=== PATIENT | male | born 1955 | race Caucasian/White ===

== ENCOUNTER 2022-05-19 14:26 | Emergency (ER) | payer MEDICARE, BC ==
[~2022-05-19] VITALS: Ht 172.7 cm; Wt 90.9 kg
[~2022-05-19 14:26] MED LIST: ASPI-611 PO; ATOR40TA72 PO; CIPR-259 PO; FLO0.4C PO; INDA1.255 PO; KETO120S5 TOP; LISI10TA27; METF-1203 PO; PREG50CA64 PO
--- NOTE | 2022-05-19 14:57 | NUR ---
DR. MOSES UPDATED ON PT STATUS, PT PLACED IN BED 11 AND REPORT GIVEN TO ZULLY POON.
[2022-05-19] MEDS ORDERED: normal saline 1000ML IV soln IVB ONE ×2 (15:00→15:55)
[2022-05-19] MEDS ORDERED: PATIROMER CALCIUM SORBITEX 8.4 GM POWD.PACK PO ONE (15:05)
[2022-05-19 15:42] LABS: BASOPHILS # (AUTO) 0.1 X10'3 (0-0.2); BASOPHILS % (AUTO) 1.3 % (0-1); EOSINOPHILS # (AUTO) 0.4 X10'3 (0-0.9); EOSINOPHILS % (AUTO) 5.4 % (0-6); HEMOGLOBIN 10.9 g/dl (14.0-17.9); LYMPHOCYTES # (AUTO) 1.3 X10'3 (1.1-4.8); LYMPHOCYTES % (AUTO) 16.8 % (21-51); MEAN CORPUSCULAR HEMOGLOBIN 30.2 PG (27.0-31.0); MEAN CORPUSCULAR HGB CONC 34.2 g/dL (33.0-36.5); MEAN CORPUSCULAR VOLUME 88.2 FL (78-98); MEAN PLATELET VOLUME 8.6 FL (7.4-10.4); MONOCYTES # (AUTO) 0.9 X10'3 (0-0.9); MONOCYTES % (AUTO) 12.4 % (2-12); NEUTROPHILS # (AUTO) 4.9 X10'3 (1.8-7.7); NEUTROPHILS % (AUTO) 64.1 % (42-75); PLATELET COUNT 325 X10'3 (140-440); RED BLOOD COUNT 3.62 X10'6 (4.70-6.10); RED CELL DISTRIBUTION WIDTH 14.7 % (11.5-14.5); WHITE BLOOD COUNT 7.6 X10'3 (4.5-11.0)
[2022-05-19 15:45] LABS: ALANINE AMINOTRANSFERASE 22 U/L (12-78); ALBUMIN 3.8 G/DL (3.4-5.0); ALBUMIN/GLOBULIN RATIO 0.9 (1.1-1.5); ALKALINE PHOSPHATASE 110 IU/L (46-116); ANION GAP 12 (8-16); ASPARTATE AMINO TRANSFERASE 17 U/L (10-37); BILIRUBIN,TOTAL 0.3 MG/DL (0.1-1.0); BLOOD UREA NITROGEN 60 MG/DL (7-18); BUN/CREATININE RATIO 25.4 (5.4-32.0); CALCIUM 9.4 MG/DL (8.5-10.1); CHLORIDE 99 MMOL/L (99-107); CREATININE 2.36 MG/DL (0.60-1.10); GLUCOSE 155 MG/DL (70-104); POTASSIUM 5.6 MMOL/L (3.5-5.1); SODIUM 133 MMOL/L (135-145); TOTAL CARBON DIOXIDE 21.8 MMOL/L (24-32); TOTAL PROTEIN 8.2 G/DL (6.4-8.2); eGFR 28 ML/MIN
--- NOTE | 2022-05-19 15:52 | NUR ---
RN received critical lab result: lactic 4.0. RN notified Dr. Feng. is aware.
[2022-05-19 17:25] VITALS: BP 110/55
== END 2022-05-19 18:08 | disposition home or self-care (01) ==
LOC: ER 14:26
DX: E87.6 Hypokalemia (principal); E86.0 Dehydration; I10 Essential (primary) hypertension; E11.9 Type 2 diabetes mellitus without complications; Z79.899 Other long term (current) drug therapy; Z88.8 Allergy status to other drugs, medicaments and biological substances
CPT/HCPCS: 36415; 71045; 80053; 83605; 83880; 84145; 84484; 85025; 87040; 93005; 96360; 96361; 99285; J7030

== ENCOUNTER 2022-05-25 05:49 | Day surgery (SDC) | payer MEDICARE, OTHER ==
[2022-05-19 13:21] LABS: ALBUMIN 3.8 G/DL (3.4-5.0); ALBUMIN/GLOBULIN RATIO 0.8 (1.1-1.5); ALKALINE PHOSPHATASE 106 IU/L (46-116); BLOOD UREA NITROGEN 55 MG/DL (7-18); BUN/CREATININE RATIO 26.8 (5.4-32.0); CALCIUM 9.8 MG/DL (8.5-10.1); CHLORIDE 100 MMOL/L (99-107); CREATININE 2.05 MG/DL (0.60-1.10); PRE OP ALT 23 U/L (30-65); PRE OP ANION GAP 11 (8-16); PRE OP AST 17 U/L (10-37); PRE OP BILIRUB, TOTAL 0.3 MG/DL (0.0-1.0); PRE OP GLUCOSE 133 MG/DL (70-104); PRE OP SODIUM 136 MMOL/L (135-145); TOTAL CARBON DIOXIDE 25.1 MMOL/L (24-32); TOTAL PROTEIN 8.5 G/DL (6.4-8.2); eGFR 32 ML/MIN
[2022-05-19 13:39] LABS: BASOPHILS # (AUTO) 0.1 X10'3 (0-0.2); BASOPHILS % (AUTO) 0.9 % (0-1); EOSINOPHILS # (AUTO) 0.5 X10'3 (0-0.9); EOSINOPHILS % (AUTO) 7.2 % (0-6); LYMPHOCYTES # (AUTO) 1.5 X10'3 (1.1-4.8); LYMPHOCYTES % (AUTO) 19.7 % (21-51); MEAN CORPUSCULAR HEMOGLOBIN 29.8 PG (27.0-31.0); MEAN CORPUSCULAR HGB CONC 33.4 g/dL (33.0-36.5); MEAN CORPUSCULAR VOLUME 89.4 FL (78-98); MEAN PLATELET VOLUME 8.8 FL (7.4-10.4); MONOCYTES # (AUTO) 0.9 X10'3 (0-0.9); MONOCYTES % (AUTO) 12.2 % (2-12); NEUTROPHILS # (AUTO) 4.6 X10'3 (1.8-7.7); PRE OP HEMATOCRIT 33.1 % (42.0-52.0); PRE OP PLATELET COUNT 332 X10'3 (140-440); RED CELL DISTRIBUTION WIDTH 14.5 % (11.5-14.5)
[2022-05-25] VITALS (8 sets, daily range): BP systolic 97–127; BP diastolic 45–69
[~2022-05-25] VITALS: Ht 172.7 cm; Wt 93.5 kg
[~2022-05-25 05:49] MED LIST changes: +ceFAZolin inj. 2,000 MG in dextrose 5%-water 100 ML IV ONE; +famotidine 20mg tablet PO ONE; +ringers solution, lacted 1,000 ML IV SCH
[2022-05-25] MEDS ORDERED: vancomycin 1,000mg inj ONE (06:04)
[2022-05-25] MEDS ORDERED: bacitracin 15gm ointment TP ONE (06:04)
[2022-05-25] MEDS ORDERED: BUPIVAcaine/PF 2.5 mg/ml (0.25%) 30ml vial ONE (06:04)
[2022-05-25] MEDS ORDERED: vancomycin 1,500 MG in NS 300ml IV soln IV ONE (06:32)
[2022-05-25 06:45] LABS: ISTAT CREATININE 1.9 mg/dL (0.8-1.3); ISTAT HGB 10.9 g/dl (14.0-17.9); ISTAT IONIZED CALCIUM 1.24 mmol/L (1.03-1.32); ISTAT K 4.7 mmol/L (3.5-5.1); POC BUN/CREATININE RATIO 33.2 (5.4-32.0)
[2022-05-25] MEDS ORDERED: propofol inj 20 ML IV ONE (07:31)
[2022-05-25] MEDS ORDERED: midazolam 1 mg/ML 2ml injection ONE (07:31)
[2022-05-25] MEDS ORDERED: fentaNYL/PF 50MCG/1 ML 2ML syringe ONE (07:31)
[2022-05-25] MEDS ORDERED: ePHEDrine 50MG/ML INJ. ONE (07:57)
[2022-05-25] MEDS ORDERED: proCHLORperazine 10 MG/2 ml inj IV PRN (08:05)
[2022-05-25] MEDS ORDERED: morphine 2 MG/ML inj. syringe IV PRN (08:05)
[2022-05-25] MEDS ORDERED: morphine 4 MG/ML inj SYRINge IV PRN (08:05)
[2022-05-25] MEDS ORDERED: ringers solution, lacted 1,000 ML IV SCH (08:05)
[2022-05-25] MEDS ORDERED: meperidine/PF 25mg/ml syringe IV PRN ×3 (08:05)
[2022-05-25] MEDS ORDERED: ondansetron/PF 4mg/2ml inj IV PRN (08:05)
[2022-05-25] MEDS ORDERED: BUPIVAcaine 2.5mg/ml inj 50ml vial (contains preservative) SQ ONE (08:08)
--- NOTE | 2022-05-25 08:23 | NUR ---
Received from OR via CHILO , accompanied by Anesthesiologist CHIP and report given by Anesthesiolgist. PT AAOX4, NO COMPLAINTS OF PAIN, ON SIMPLE MASK, NAD. DRESSING CLEAN DRY AND INTACT TO RIGHT FOOT, POSITIVE CIRCULATION AND MOVEMENT. Addendum: 05/25/22 at 0919 by Vimal Fowler RN Amended: Links added.
--- NOTE | 2022-05-25 09:13 | NUR ---
PT DISCHARGED HOME INTO 'S CARE. PT HAS NO COMPLAINTS.VSS, NO COMPLAINTS OF PAIN. DEMONSTRATES INDEPENDENT AMBULATION, STEADY NARROW GAIT WITH BOOT IN PLACE PWB PER MD ORDER. TO POV VIA WHEELCHAIR WITHOUT INCIDENT Addendum: 05/25/22 at 0921 by Vimal Fowler RN Amended: Links added.
== END 2022-05-25 09:13 | disposition home or self-care (01) ==
LOC: PAS 05:49
PROVIDERS: ATTEND Podiatrist Foot & Ankle Surgery
DX: E11.621 Type 2 diabetes mellitus with foot ulcer (principal); L97.429 Non-pressure chronic ulcer of left heel and midfoot with unspecified severity; A49.8 Other bacterial infections of unspecified site; Z98.890 Other specified postprocedural states; Z87.891 Personal history of nicotine dependence; I10 Essential (primary) hypertension; Z88.8 Allergy status to other drugs, medicaments and biological substances; Z87.442 Personal history of urinary calculi; E11.51 Type 2 diabetes mellitus with diabetic peripheral angiopathy without gangrene
CPT/HCPCS: 14040; 28810; 36415; 80047; 80053; 85025; 87070; 87075; 87077; 87186; A6223; J0690; J2250; J2704; J3010; J3370; J3490; J7030; J7040; J7060; J7120; Z7506; Z7512; 87076; 88305; 88311; A4618; A6449; A7000

== ENCOUNTER 2022-07-18 08:31 | Inpatient (IN) | payer MEDICARE, BC ==
[~2022-07-18] VITALS: Ht 172.7 cm; Wt 98.1 kg
[~2022-07-18 08:31] MED LIST changes: -INDA1.255 PO; -ceFAZolin inj. 2,000 MG in dextrose 5%-water 100 ML IV ONE; -famotidine 20mg tablet PO ONE; -ringers solution, lacted 1,000 ML IV SCH
[2022-07-18] MEDS ORDERED: amiodarone 150mg/dext, iso-os 100 ML IV ONE (08:45)
[2022-07-18] MEDS ORDERED: digoxin 250mcg/ml 2ml ampule IV ONE (08:45)
[2022-07-18] MEDS ORDERED: normal saline 1000ML IV soln IVB ONE (08:45)
[2022-07-18 08:54] LABS: BASOPHILS # (AUTO) 0.1 X10'3 (0-0.2); EOSINOPHILS # (AUTO) 0.3 X10'3 (0-0.9); EOSINOPHILS % (AUTO) 4.5 % (0-6); HEMATOCRIT 33.8 % (42.0-52.0); LYMPHOCYTES # (AUTO) 1.8 X10'3 (1.1-4.8); MEAN CORPUSCULAR HEMOGLOBIN 29.2 PG (27.0-31.0); MEAN CORPUSCULAR HGB CONC 32.4 g/dL (33.0-36.5); MEAN CORPUSCULAR VOLUME 90.2 FL (78-98); MONOCYTES % (AUTO) 12.9 % (2-12); NEUTROPHILS # (AUTO) 4.3 X10'3 (1.8-7.7); NEUTROPHILS % (AUTO) 56.6 % (42-75); PLATELET COUNT 251 X10'3 (140-440); RED BLOOD COUNT 3.75 X10'6 (4.70-6.10); RED CELL DISTRIBUTION WIDTH 14.8 % (11.5-14.5); WHITE BLOOD COUNT 7.6 X10'3 (4.5-11.0)
--- NOTE | 2022-07-18 09:06 | NUR ---
AFTER AMIO BOLUS PT CONVERTED TO NSR. AWARE. WILL REPEAT EKG
[2022-07-18 09:18] LABS: ALANINE AMINOTRANSFERASE 22 U/L (12-78); ALBUMIN/GLOBULIN RATIO 1.1 (1.1-1.5); ALKALINE PHOSPHATASE 88 IU/L (46-116); ANION GAP 13 (8-16); ASPARTATE AMINO TRANSFERASE 22 U/L (10-37); BILIRUBIN,TOTAL 0.4 MG/DL (0.1-1.0); BLOOD UREA NITROGEN 38 MG/DL (7-18); BUN/CREATININE RATIO 23.3 (5.4-32.0); CALCIUM 9.2 MG/DL (8.5-10.1); CHLORIDE 105 MMOL/L (99-107); CREATININE 1.63 MG/DL (0.60-1.10); GLUCOSE 143 MG/DL (70-104); MAGNESIUM 1.4 MG/DL (1.5-2.4); POTASSIUM 4.7 MMOL/L (3.5-5.1); SODIUM 139 MMOL/L (135-145); TOTAL CARBON DIOXIDE 20.6 MMOL/L (24-32); TOTAL PROTEIN 7.7 G/DL (6.4-8.2); eGFR 42 ML/MIN
[2022-07-18] MEDS ORDERED: apixaban 5mg tablet PO ONE (09:45)
[2022-07-18] MEDS: magnesium 2GM in 50ml NS 50 ML IV SCH ×2 (10:21→10:50)
[2022-07-18] MEDS ORDERED: APIX5TAB3 PO ×2 (10:27)
[2022-07-18] MEDS ORDERED: MAGN64TA8 PO ×2 (10:27)
[2022-07-18] MEDS ORDERED: potassium Cl 20 mEq SR tablet PO PRN ×2 (11:35)
[2022-07-18] MEDS ORDERED: morphine 2 MG/ML inj. syringe IV PRN ×2 (11:35)
[2022-07-18] MEDS ORDERED: magnesium 4gm in 100ml NS 100 ML IV PRN (11:35)
[2022-07-18] MEDS ORDERED: HYDROcodone/acetaminophen 10/325mg tab PO PRN (11:35)
[2022-07-18] MEDS ORDERED: magnesium Cl slow-release 64mg tablet PO PRN (11:35)
[2022-07-18] MEDS ORDERED: ondansetron/PF 4mg/2ml inj IV PRN (11:35)
[2022-07-18] MEDS ORDERED: potassium Cl 40MEQ/1/2NS 520ml 520 ML IV PRN (11:35)
[2022-07-18] MEDS ORDERED: HYDROcodone/acetaminophen 5mg/325mg tablet PO PRN (11:35)
[2022-07-18] MEDS ORDERED: diltiazem-NS 100mg/100ml 100 ML IV SCH (11:35)
[2022-07-18] MEDS ORDERED: acetaminophen 325mg tablet PO PRN ×2 (11:35)
[2022-07-18] MEDS: normal saline 1000ml 1,000 ML IV SCH (12:50)
[2022-07-18] MEDS ORDERED: PREG50CA PO (13:29)
[2022-07-18] MEDS ORDERED: KEN0.1O TOP (13:31)
[2022-07-18] MEDS ORDERED: INSU100V56 SQ (13:33)
[2022-07-18] MEDS ORDERED: ACET-75 PO (13:34)
[2022-07-18 14:23] LABS: APTT 28 SECONDS (22-32)
[2022-07-18] MEDS ORDERED: aspirin 81mg tab.chew PO ONE (15:10)
[2022-07-18 15:27] LABS: CHOL/HDL RATIO 2.9 (0.00-4.99); CHOLESTEROL 103 MG/DL (0-200); HDL CHOLESTEROL 36 MG/DL (35-60); LDL CHOLESTEROL 51 MG/DL (50-100); TRIGLYCERIDES 105 MG/DL (20-135)
[2022-07-18] MEDS ORDERED: glucagon, human recombinant 1mg kit SUBCUT PRN (15:50)
[2022-07-18] MEDS ORDERED: DEXTROSE 15 GM of carb/4 tabs (each vial/BOTTLE has 4 tablets) PO PRN ×2 (15:50)
[2022-07-18] MEDS ORDERED: dextrose 50%-water 50ml dispensing syringe IV PRN ×2 (15:50)
[2022-07-18] MEDS ORDERED: insulin Lispro (HumaLOG) vial - multi-dose SQ SCH (15:50)
[2022-07-18] MEDS ORDERED: MESSAGE TO PHARMACY PO ONE (15:50)
[2022-07-18] MEDS ORDERED: heparin, porcine 5000 units/ml vial SQ SCH (16:00)
--- NOTE | 2022-07-18 17:48 | NUR ---
patient arrived to floor . He is alert and oriented. Vitals are stable. Patient is being monitored by telemetry. He was oriented to room and call light.
[2022-07-18 18:00] VITALS: BP 127/61
--- NOTE | 2022-07-18 18:05 | NUR ---
Orientee documentation: I have reviewed and agree with all interventions, assessments performed and documented by Migdalia SANDOVAL . Orientee Medication Administration: For this medication-pass time frame, all medication were reviewed, dispensed, administered and documented per hospital policy by Migdalia SANDOVAL.
--- NOTE | 2022-07-18 18:11 | NUR ---
Problems reprioritized. Patient report given, questions answered & plan of care reviewed with Freddy SANDOVAL.
--- NOTE | 2022-07-18 18:30 | NUR ---
Patient in room PCU 3018. I have received report from galo and had the opportunity to ask questions and assume patient care.
[2022-07-18] MEDS: metoprolol tartrate 12.5mg (1/2 tablet) PO SCH (20:44)
[2022-07-18] MEDS: pregabalin 25mg capsule PO SCH (20:44)
[2022-07-18] MEDS ORDERED: temazepam 15mg capsule PO PRN (21:00)
[2022-07-18] MEDS ORDERED: insulin glargine (Lantus) pen - multi-dose SQ SCH (21:00)
[2022-07-18] MEDS ORDERED: heparin 25,000 UNIT/250ml bag 250 ML IV PRN (22:30)
[2022-07-18] MEDS: heparin 10,000 units/1 ML INJ IV PRN (23:46)
[2022-07-19] VITALS (14 sets, daily range): BP systolic 108–144; BP diastolic 47–63
--- NOTE | 2022-07-19 07:01 | NUR ---
Patient in room PCU 3018. I have received report from Freddy SANDOVAL and had the opportunity to ask questions and assume patient care.
[2022-07-19 07:17] LABS: BASOPHILS # (AUTO) 0.1 X10'3 (0-0.2); EOSINOPHILS # (AUTO) 0.4 X10'3 (0-0.9); EOSINOPHILS % (AUTO) 4.8 % (0-6); HEMATOCRIT 31.8 % (42.0-52.0); HEMOGLOBIN 10.6 g/dl (14.0-17.9); LYMPHOCYTES # (AUTO) 1.5 X10'3 (1.1-4.8); LYMPHOCYTES % (AUTO) 19.2 % (21-51); MEAN CORPUSCULAR HEMOGLOBIN 29.8 PG (27.0-31.0); MEAN CORPUSCULAR HGB CONC 33.4 g/dL (33.0-36.5); MEAN CORPUSCULAR VOLUME 89.3 FL (78-98); MEAN PLATELET VOLUME 9.4 FL (7.4-10.4); MONOCYTES # (AUTO) 0.9 X10'3 (0-0.9); PLATELET COUNT 244 X10'3 (140-440); RED BLOOD COUNT 3.57 X10'6 (4.70-6.10); RED CELL DISTRIBUTION WIDTH 14.9 % (11.5-14.5); WHITE BLOOD COUNT 7.9 X10'3 (4.5-11.0)
[2022-07-19] MEDS: tamsulosin 0.4mg capsule PO SCH (07:24)
[2022-07-19] MEDS: pregabalin 25mg capsule PO SCH ×2 (07:25→21:37)
[2022-07-19] MEDS: atorvastatin 20mg tablet PO SCH (07:25)
[2022-07-19] MEDS: aspirin 81mg tab.chew PO SCH (07:28)
[2022-07-19] MEDS: heparin 10,000 units/1 ML INJ IV PRN ×2 (07:36→21:10)
[2022-07-19] MEDS: lisinopril 10 MG tablet PO SCH (08:00)
[2022-07-19] MEDS: metoprolol tartrate 12.5mg (1/2 tablet) PO SCH ×2 (08:00→21:32)
[2022-07-19 08:36] LABS: ALANINE AMINOTRANSFERASE 21 U/L (12-78); ALBUMIN 3.7 G/DL (3.4-5.0); ALBUMIN/GLOBULIN RATIO 1.1 (1.1-1.5); ALKALINE PHOSPHATASE 79 IU/L (46-116); ANION GAP 8 (8-16); ASPARTATE AMINO TRANSFERASE 38 U/L (10-37); BILIRUBIN,TOTAL 0.3 MG/DL (0.1-1.0); BLOOD UREA NITROGEN 31 MG/DL (7-18); BUN/CREATININE RATIO 24.2 (5.4-32.0); CALCIUM 8.7 MG/DL (8.5-10.1); CHLORIDE 106 MMOL/L (99-107); CREATININE 1.28 MG/DL (0.60-1.10); GLUCOSE 116 MG/DL (70-104); POTASSIUM 4.5 MMOL/L (3.5-5.1); SODIUM 139 MMOL/L (135-145); TOTAL CARBON DIOXIDE 24.6 MMOL/L (24-32); TOTAL PROTEIN 7.2 G/DL (6.4-8.2); eGFR 56 ML/MIN
[2022-07-19] MEDS: normal saline 1000ml 1,000 ML IV SCH (08:44)
[2022-07-19] MEDS ORDERED: verapamil 2.5 mg/ml inj IV ONE (11:30)
[2022-07-19] MEDS ORDERED: nitroGLYCERIN-Tridil 50MG/D5W 250 ML IV ONE (11:30)
[2022-07-19] MEDS ORDERED: midazolam 1 mg/ML 2ml injection ONE (11:30)
[2022-07-19] MEDS ORDERED: LIDOcaine 1% (10mg/ml) 2ml vial ONE (11:31)
[2022-07-19] MEDS ORDERED: heparin 1,000unit/ml 10ml vial 10 ML ONE (11:31)
[2022-07-19] MEDS ORDERED: iohexol 350MG/ML 100ml bottle IV ONE (11:31)
[2022-07-19] MEDS ORDERED: FENTANYL CITRATE/PF 50 MCG/1 ML VIAL ONE (11:31)
--- NOTE | 2022-07-19 12:08 | NUR ---
Pt taken to field laborer at approx 1145, no BS @ 1200 able to be taken.
--- NOTE | 2022-07-19 13:18 | NUR ---
patient returned from mine laborer. Vitals stable, distal pulses and sensation intact, no hematoma or bruising at r radial cath site.
--- NOTE | 2022-07-19 13:21 | NUR ---
per paint laboratory technician restart heparin at 7pm tonight
[2022-07-19] MEDS ORDERED: MESSAGE TO PHARMACY IJ ONE (13:55)
[2022-07-19] MEDS ORDERED: Insulin Reg/NS 100units/100mL 100 ML IV SCH (13:55)
[2022-07-19] MEDS ORDERED: MESSAGE TO NURSING PO ONE ×3 (13:55)
[2022-07-19] MEDS ORDERED: insulin glargine (Lantus) pen - multi-dose SQ PRN (13:55)
[2022-07-19] MEDS ORDERED: cefazolin/dext.iso 2gm/50ml 50 ML IV ONE (13:55)
[2022-07-19] MEDS ORDERED: dextrose 50%-water 50ml dispensing syringe IV PRN (13:55)
[2022-07-19] MEDS ORDERED: gabapentin 400mg capsule PO ONE (13:55)
[2022-07-19 15:02] LABS: APTT 74 SECONDS (22-32)
--- NOTE | 2022-07-19 15:09 | NUR ---
Patient 3018B, Sal Evangelista - scheduled for CABG 07/20/22 @ 1500, needs pulmonary function test and ABG. Please and thank you. Migdalia Peña, JAIME II
--- NOTE | 2022-07-19 15:15 | NUR ---
heparin gtt was stopped in catheterization laboratory technician and has remained off. Lab and pharmacy called to tell me PTT is 74. Heparin gtt to restart at 1900. PTT ordered for 1800.
[2022-07-19 15:49] LABS: ABG BASE EXCESS -2.5 mmol/L (-2.0-2.0); ABG HCO3 21.4 mmol/L (22.0-26.0); ABG OXYGEN SATURATION 95.2 % (94-97); ABG PCO2 (T) 34.2 mmHg (35.0-48.0); ABG PO2 (T) 80.6 mmHg (75.0-100.0); ALLEN'S TEST POSITIVE; FCOHb 0.3 % (0.0-3.9); FMetHb 0.1 % (0.0-1.5); FO2Hb 94.8 % (94-97); TOTAL HEMOGLOBIN 11.7 G/dl (14.0-17.9)
--- NOTE | 2022-07-19 16:19 | NUR ---
LN gave education and pamphlet to patient r/t cardiac procedures, gave education, incentive spirometer and witnessed pt using spirometer. LN [facility] to [facility] and eduardo is no longer with services and second number does not work.
[2022-07-19] MEDS ORDERED: ringers solution, lacted 1,000 ML IV ONE (16:30)
--- NOTE | 2022-07-19 17:56 | NUR ---
Orientee documentation: I have reviewed and agree with all interventions, assessments performed and documented by Migdalia SANDOVAL. Orientee Medication Administration: For this medication-pass time frame, all medication were reviewed, dispensed, administered and documented per hospital policy by Migdalia SANDOVAL.
--- NOTE | 2022-07-19 18:20 | NUR ---
Problems reprioritized. Patient report given, questions answered & plan of care reviewed with Alejandro ANDREA.
[2022-07-19 19:00] LABS: CLARITY,URINE CLEAR (Clear); COLOR,URINE YELLOW (Yellow); GLUCOSE, URINE >=1000 mg/dl (Neg); KETONES,URINE NEGATIVE (Neg); LEUKOCYTE ESTERASE ,URINE NEGATIVE (Neg); NITRITES, URINE NEGATIVE (Neg); OCCULT BLOOD,URINE NEGATIVE (Neg); PROTEIN,URINE NEGATIVE (Neg); UROBILINOGEN,URINE 0.2 E.U/dL (0.2-1.0)
[2022-07-19 19:11] LABS: UA COLLECTION TYPE CLN CATCH MIDSTREAM
[2022-07-19 19:14] LABS: BACTERIA,URINE NONE SEEN /HPF (Neg); MUCUS STRANDS NONE SEEN /LPF (Neg); RBC,URINE 0-2 /HPF (0-2); SQUAMOUS EPITHELIAL CELL,UR NONE SEEN /LPF (FEW); WBC,URINE 0-4 /HPF (0-4)
[2022-07-20] VITALS (11 sets, daily range): BP systolic 100–158; BP diastolic 44–80
[2022-07-20] MEDS: heparin 10,000 units/1 ML INJ IV PRN (04:09)
[2022-07-20] MEDS ORDERED: LORazepam 2 mg/ml vial IV ONE ×2 (06:00→11:40)
[2022-07-20] MEDS ORDERED: famotidine 20mg tablet PO ONE (06:00)
--- NOTE | 2022-07-20 06:20 | NUR ---
Patient in room U 3018. I have received report from Alejandro ANDREA and had the opportunity to ask questions and assume patient care.Bedside report completed. Addendum: 07/20/22 at 0621 by Linsey Veras RN Amended: Links added.
[2022-07-20] MEDS: normal saline 1000ml 1,000 ML IV SCH ×3 (06:29→20:47)
[2022-07-20 06:49] LABS: BASOPHILS # (AUTO) 0.1 X10'3 (0-0.2); BASOPHILS % (AUTO) 0.9 % (0-1); EOSINOPHILS # (AUTO) 0.4 X10'3 (0-0.9); EOSINOPHILS % (AUTO) 4.7 % (0-6); HEMATOCRIT 35.7 % (42.0-52.0); HEMOGLOBIN 11.8 g/dl (14.0-17.9); LYMPHOCYTES # (AUTO) 1.9 X10'3 (1.1-4.8); LYMPHOCYTES % (AUTO) 19.6 % (21-51); MEAN CORPUSCULAR HEMOGLOBIN 29.5 PG (27.0-31.0); MEAN CORPUSCULAR VOLUME 89.5 FL (78-98); MEAN PLATELET VOLUME 9.3 FL (7.4-10.4); MONOCYTES % (AUTO) 10.7 % (2-12); NEUTROPHILS # (AUTO) 6.1 X10'3 (1.8-7.7); NEUTROPHILS % (AUTO) 64.1 % (42-75); PLATELET COUNT 283 X10'3 (140-440); RED BLOOD COUNT 3.99 X10'6 (4.70-6.10); RED CELL DISTRIBUTION WIDTH 14.7 % (11.5-14.5); WHITE BLOOD COUNT 9.5 X10'3 (4.5-11.0)
[2022-07-20 07:08] LABS: ALANINE AMINOTRANSFERASE 23 U/L (12-78); ALBUMIN 4.2 G/DL (3.4-5.0); ALBUMIN/GLOBULIN RATIO 1.1 (1.1-1.5); ALKALINE PHOSPHATASE 94 IU/L (46-116); ANION GAP 12 (8-16); ASPARTATE AMINO TRANSFERASE 25 U/L (10-37); BILIRUBIN,TOTAL 0.3 MG/DL (0.1-1.0); BLOOD UREA NITROGEN 25 MG/DL (7-18); BUN/CREATININE RATIO 18.1 (5.4-32.0); CALCIUM 8.8 MG/DL (8.5-10.1); CHLORIDE 103 MMOL/L (99-107); CREATININE 1.38 MG/DL (0.60-1.10); GLUCOSE 158 MG/DL (70-104); POTASSIUM 4.3 MMOL/L (3.5-5.1); SODIUM 139 MMOL/L (135-145); TOTAL CARBON DIOXIDE 24.4 MMOL/L (24-32); TOTAL PROTEIN 8.1 G/DL (6.4-8.2); eGFR 51 ML/MIN
[2022-07-20] MEDS: aspirin 81mg tab.chew PO SCH (09:10)
[2022-07-20] MEDS: atorvastatin 20mg tablet PO SCH (09:10)
[2022-07-20] MEDS: tamsulosin 0.4mg capsule PO SCH (09:10)
[2022-07-20] MEDS: metoprolol tartrate 12.5mg (1/2 tablet) PO SCH (09:11)
[2022-07-20] MEDS: pregabalin 25mg capsule PO SCH ×2 (09:11→20:00)
[2022-07-20] MEDS: lisinopril 10 MG tablet PO SCH (09:12)
[2022-07-20] MEDS: MESSAGE TO NURSING PO SCH (09:15)
[2022-07-20] MEDS ORDERED: MESSAGE TO NURSING PO ONE (10:00)
[2022-07-20] MEDS ORDERED: ceFAZolin 1000mg inj ONE (12:58)
[2022-07-20] MEDS ORDERED: BUPIVAcaine 0.5% inj/PF 0 ML ONE (12:58)
[2022-07-20] MEDS ORDERED: epiNEPHrine 1 mg/ml inj ONE (12:58)
[2022-07-20] MEDS ORDERED: BUPIVAcaine 0.5% inj/PF 30 ML ONE ×2 (13:44→15:11)
[2022-07-20] MEDS ORDERED: mupirocin 2% nasal ointment 1gm UD NS SCH (14:00)
[2022-07-20] MEDS ORDERED: rocuronium 10mg/ml inj IV ONE ×3 (14:03→14:12)
[2022-07-20] MEDS ORDERED: sevoflurane 250ml liquid IH ONE (14:03)
[2022-07-20] MEDS ORDERED: protamine sulf. 10mg/ml inj. IV ONE (14:03)
[2022-07-20] MEDS ORDERED: MIDAZolam 1 MG/ML 5ML VIAL ONE (14:06)
[2022-07-20] MEDS ORDERED: propofol inj 20 ML IV ONE (14:07)
[2022-07-20] MEDS ORDERED: fentaNYL /PF 50mcg/ml 5ml ampule ONE ×2 (14:07→15:20)
--- NOTE | 2022-07-20 14:08 | NUR ---
down to OR has glasses, cpap shoes, wedding ring and cell phone. She has already taken suitcase containing jammies and robes x2.
[2022-07-20 14:55] LABS: ABG BASE EXCESS -2.3 mmol/L (-2.0-2.0); ABG OXYGEN SATURATION 98.7 % (94-97); ABG PCO2 35.9 mmHg (35.0-48.0); ABG PO2 185.4 mmHg (75.0-100.0); CL (ABG) 108 mmol/L (99-107); FCOHb 0.3 % (0.0-3.9); FMetHb 0.3 % (0.0-1.5); FO2Hb 98.1 % (94-97); GLUCOSE (ABG) 149 mg/dl (70-104); IONIZED CA (ABG) 1.15 mmol/L (1.10-1.30); K (ABG) 3.9 mmol/L (3.5-5.1); TOTAL HEMOGLOBIN 10.8 G/dl (14.0-17.9)
[2022-07-20] MEDS ORDERED: phenylephrine 10mg/ml inj. -priapism dosing ONE (15:00)
[2022-07-20] MEDS ORDERED: NORepinephrine bitart. inj. IV ONE (15:00)
[2022-07-20] MEDS ORDERED: sodium bicarbonate (8.4%) 1 mEq/ml syringe ONE (15:00)
[2022-07-20] MEDS ORDERED: methylPREDNISolone sod succ 1000mg vial ONE (15:00)
[2022-07-20] MEDS ORDERED: albumin (human) 25% 100 ML IV solution IV ONE (15:00)
[2022-07-20] MEDS ORDERED: heparin 10,000 units/1 ML INJ ONE (15:00)
[2022-07-20] MEDS ORDERED: calcium chloride 100 MG/1 ML inj IV ONE ×2 (15:00→18:26)
[2022-07-20] MEDS ORDERED: aminocaproic acid 250 MG/1 ML inj. ONE (15:00)
[2022-07-20] MEDS ORDERED: mannitol 12.5gm/50mL VIAL IV ONE (15:00)
[2022-07-20] MEDS ORDERED: ceFAZolin 1000mg inj IR ONE (15:50)
[2022-07-20] MEDS ORDERED: BUPIVAcaine 0.5% inj/PF 30 ml vial IJ ONE (15:51)
[2022-07-20] MEDS ORDERED: epiNEPHrine 1 mg/ml inj IU ONE (15:51)
[2022-07-20] MEDS ORDERED: papaverine 30 mg/ml 2ml inj. IA ONE (15:52)
[2022-07-20] MEDS ORDERED: heparin 10,000 units/1 ML INJ IR ONE (15:54)
[2022-07-20 16:10] LABS: ABG BASE EXCESS VENOUS -1.8 mmol/L (-2.0 - 2.0); ABG HCO3 VENOUS 22.7 mmol/L (21.0-28.0); ABG PCO2 VENOUS 37.1 mmHg (41.0-54.0); ABG PO2 VENOUS 46.3 mmHg (25.0-35.0); CL (ABG) 103 mmol/L (99-107); FCOHb VENOUS 1.3 %; FHHb VENOUS 16.7 %; FMetHb VENOUS 0.3 % (0.0 - 0.5); FO2Hb VENOUS 81.7 %; GLUCOSE (ABG) 161 mg/dl (70-104); IONIZED CA (ABG) 0.91 mmol/L (1.10-1.30); K (ABG) 4.4 mmol/L (3.5-5.1); TOTAL HEMOGLOBIN 7.2 G/dl (14.0-17.9)
[2022-07-20 16:17] LABS: ABG BASE EXCESS -0.7 mmol/L (-2.0-2.0); ABG HCO3 23.6 mmol/L (22.0-26.0); ABG OXYGEN SATURATION 99.3 % (94-97); ABG PCO2 37.2 mmHg (35.0-48.0); ABG PO2 454.7 mmHg (75.0-100.0); CL (ABG) 105 mmol/L (99-107); FCOHb 0.5 % (0.0-3.9); FMetHb 0.3 % (0.0-1.5); FO2Hb 98.5 % (94-97); GLUCOSE (ABG) 162 mg/dl (70-104); IONIZED CA (ABG) 0.99 mmol/L (1.10-1.30); K (ABG) 3.9 mmol/L (3.5-5.1); TOTAL HEMOGLOBIN 7.6 G/dl (14.0-17.9)
[2022-07-20 16:47] LABS: ABG BASE EXCESS -2.7 mmol/L (-2.0-2.0); ABG HCO3 23.1 mmol/L (22.0-26.0); ABG OXYGEN SATURATION 99.1 % (94-97); ABG PCO2 45.1 mmHg (35.0-48.0); ABG PO2 272.8 mmHg (75.0-100.0); CL (ABG) 106 mmol/L (99-107); FCOHb 0.5 % (0.0-3.9); FMetHb 0.3 % (0.0-1.5); FO2Hb 98.3 % (94-97); GLUCOSE (ABG) 163 mg/dl (70-104); IONIZED CA (ABG) 1.04 mmol/L (1.10-1.30); K (ABG) 4.1 mmol/L (3.5-5.1); TOTAL HEMOGLOBIN 8.1 G/dl (14.0-17.9)
[2022-07-20 17:27] LABS: ABG BASE EXCESS VENOUS -2.4 mmol/L (-2.0 - 2.0); ABG HCO3 VENOUS 22.8 mmol/L (21.0-28.0); ABG PCO2 VENOUS 41.1 mmHg (41.0-54.0); ABG PO2 VENOUS 41.1 mmHg (25.0-35.0); CL (ABG) 111 mmol/L (99-107); FCOHb VENOUS 1.1 %; FHHb VENOUS 25.9 %; FMetHb VENOUS 0.3 % (0.0 - 0.5); FO2Hb VENOUS 72.7 %; GLUCOSE (ABG) 147 mg/dl (70-104); IONIZED CA (ABG) > 2.84 mmol/L (1.10-1.30); K (ABG) 3.8 mmol/L (3.5-5.1)
[2022-07-20 17:29] LABS: ACTIVATED CLOTTING TIME 140 SEC (101-148)
[2022-07-20] MEDS ORDERED: niCARDipine-NS 40mg/200ml IVPB 200 ML IV PRN (17:45)
[2022-07-20] MEDS ORDERED: potassium Cl 40MEQ/270ML bag 250 ML IV PRN (17:45)
[2022-07-20] MEDS ORDERED: sodium chloride 0.45% 1,000 ML IV SCH (17:45)
[2022-07-20] MEDS ORDERED: potassium Cl 20mEq/100mL bag 100 ML IV PRN (17:45)
[2022-07-20] MEDS ORDERED: Neutra Phos packet PO PRN (17:45)
[2022-07-20] MEDS ORDERED: potassium Cl 40MEQ/1/2NS 520ml 520 ML IV PRN (17:45)
[2022-07-20] MEDS ORDERED: magnesium citrate 296ml oral solution PO PRN (17:45)
[2022-07-20] MEDS ORDERED: magnesium 2GM in 50ml NS 50 ML IV PRN (17:45)
[2022-07-20] MEDS ORDERED: insulin glargine (Lantus) pen - multi-dose SQ PRN (17:45)
[2022-07-20] MEDS ORDERED: nitroGLYCERIN-Tridil 50MG/D5W 250 ML IV SCH (17:45)
[2022-07-20] MEDS ORDERED: ondansetron/PF 4mg/2ml inj IV PRN (17:45)
[2022-07-20] MEDS ORDERED: potassium Cl 20 mEq SR tablet PO PRN (17:45)
[2022-07-20] MEDS ORDERED: mineral oil 133ml enema RC PRN (17:45)
[2022-07-20] MEDS ORDERED: magnesium hydroxide 30ml (MOM) UD suspension PO PRN (17:45)
[2022-07-20] MEDS ORDERED: morphine 4 MG/ML inj SYRINge IV PRN (17:45)
[2022-07-20] MEDS ORDERED: sodium phosphate inj. 30 MMOL in dextrose 5%-water 250 ML IV PRN (17:45)
[2022-07-20] MEDS ORDERED: bisacodyl 10mg suppository rectal RC PRN (17:45)
[2022-07-20] MEDS ORDERED: acetaminophen 325mg tablet PO PRN ×2 (17:45)
[2022-07-20] MEDS ORDERED: potassium CL 10mEq/100ml bag 100 ML IV PRN (17:45)
[2022-07-20] MEDS ORDERED: dextrose 50%-water 50ml dispensing syringe IV PRN (17:45)
[2022-07-20] MEDS ORDERED: magnesium 4gm in 100ml NS 100 ML IV PRN (17:45)
[2022-07-20] MEDS ORDERED: metoclopramide 5 mg/ml inj IV PRN (17:45)
[2022-07-20] MEDS ORDERED: Insulin Reg/NS 100units/100mL 100 ML IV SCH (17:45)
[2022-07-20] MEDS ORDERED: sodium phosphate inj. 15 MMOL in dextrose 5%-water 250 ML IV PRN (17:45)
--- NOTE | 2022-07-20 18:15 | NUR ---
Received to room , accompanied by MDs and surgical crew. Placed on ventilator, to director of programming, arterial line and PA line pressure zeroed & monitored. Chest tubes to suction at 20 cm. Barbosa cath to gravity drainage. Dressings are dry and intact. See assessment record. All vasoactive drugs are infusing via central line.
[2022-07-20 18:42] LABS: ABG BASE EXCESS -3.9 mmol/L (-2.0-2.0); ABG HCO3 21.6 mmol/L (22.0-26.0); ABG PCO2 (T) 39.6 mmHg (35.0-48.0); ABG PO2 (T) 172.6 mmHg (75.0-100.0); FCOHb 0.3 % (0.0-3.9); FMetHb 0.2 % (0.0-1.5); FO2Hb 97.5 % (94-97); PATIENT TEMPERATURE 36.2; PEEP 5 cm H2O; RESPIRATORY RATE 12 b/min; TIDAL VOLUME 500 mL; TOTAL HEMOGLOBIN 9.4 G/dl (14.0-17.9)
[2022-07-20] MEDS: albumin (Human) 5% 250ml 250 ML IV PRN ×3 (18:48→19:36)
[2022-07-20] MEDS: NORepinephrine 8mg/ 250ml NS 250 ML IV SCH (18:56)
[2022-07-20 19:00] LABS: BASOPHILS # (AUTO) 0.1 X10'3 (0-0.2); BASOPHILS % (AUTO) 0.4 % (0-1); EOSINOPHILS # (AUTO) 0.1 X10'3 (0-0.9); EOSINOPHILS % (AUTO) 0.9 % (0-6); HEMATOCRIT 25.8 % (42.0-52.0); HEMOGLOBIN 8.5 g/dl (14.0-17.9); LYMPHOCYTES # (AUTO) 1.4 X10'3 (1.1-4.8); LYMPHOCYTES % (AUTO) 8.6 % (21-51); MEAN CORPUSCULAR HEMOGLOBIN 29.4 PG (27.0-31.0); MEAN CORPUSCULAR VOLUME 89.1 FL (78-98); MEAN PLATELET VOLUME 9.1 FL (7.4-10.4); MONOCYTES # (AUTO) 1.3 X10'3 (0-0.9); MONOCYTES % (AUTO) 8.1 % (2-12); NEUTROPHILS # (AUTO) 12.9 X10'3 (1.8-7.7); PLATELET COUNT 168 X10'3 (140-440); RED CELL DISTRIBUTION WIDTH 14.7 % (11.5-14.5); WHITE BLOOD COUNT 15.7 X10'3 (4.5-11.0)
[2022-07-20 19:07] LABS: APTT 26 SECONDS (22-32)
[2022-07-20 19:13] LABS: ALANINE AMINOTRANSFERASE 17 U/L (12-78); ALBUMIN 3.1 G/DL (3.4-5.0); ALBUMIN/GLOBULIN RATIO 1.3 (1.1-1.5); ALKALINE PHOSPHATASE 52 IU/L (46-116); ANION GAP 8 (8-16); ASPARTATE AMINO TRANSFERASE 23 U/L (10-37); BILIRUBIN,TOTAL 0.4 MG/DL (0.1-1.0); BLOOD UREA NITROGEN 18 MG/DL (7-18); BUN/CREATININE RATIO 15.7 (5.4-32.0); CALCIUM 10.1 MG/DL (8.5-10.1); CHLORIDE 109 MMOL/L (99-107); CREATININE 1.15 MG/DL (0.60-1.10); GLUCOSE 191 MG/DL (70-104); MAGNESIUM 1.6 MG/DL (1.5-2.4); PHOSPHORUS 3.6 MG/DL (2.3-4.5); POTASSIUM 3.6 MMOL/L (3.5-5.1); SODIUM 140 MMOL/L (135-145); TOTAL CARBON DIOXIDE 23.2 MMOL/L (24-32); TOTAL PROTEIN 5.4 G/DL (6.4-8.2); eGFR 63 ML/MIN
[2022-07-20] MEDS ORDERED: albumin (Human) 5% 250ml 250 ML IV ONE (19:45)
[2022-07-20] MEDS: sennosides/docusate sodium tablet PO SCH (20:00)
[2022-07-20 20:52] LABS: PLATELET ESTIMATE NORMAL; SMUDGE CELLS 1+; TOTAL CELLS COUNTED 100
[2022-07-20 20:54] LABS: BURR CELLS FEW
[2022-07-20] MEDS ORDERED: atorvastatin 10mg tablet PO SCH (21:00)
[2022-07-20] MEDS: mupirocin 2% ointment 22GM NS SCH (21:56)
[2022-07-21] VITALS (36 sets, daily range): BP systolic 90–131; BP diastolic 46–57
[2022-07-21 00:14] LABS: BASOPHILS % (AUTO) 0.1 % (0-1); EOSINOPHILS % (AUTO) 0 % (0-6); LYMPHOCYTES # (AUTO) 0.7 X10'3 (1.1-4.8); LYMPHOCYTES % (AUTO) 4.6 % (21-51); MEAN CORPUSCULAR HEMOGLOBIN 29.7 PG (27.0-31.0); MEAN CORPUSCULAR HGB CONC 33.5 g/dL (33.0-36.5); MEAN CORPUSCULAR VOLUME 88.7 FL (78-98); MEAN PLATELET VOLUME 9.1 FL (7.4-10.4); MONOCYTES # (AUTO) 0.7 X10'3 (0-0.9); MONOCYTES % (AUTO) 4.6 % (2-12); NEUTROPHILS # (AUTO) 13.5 X10'3 (1.8-7.7); NEUTROPHILS % (AUTO) 90.7 % (42-75); PLATELET COUNT 143 X10'3 (140-440); RED BLOOD COUNT 1.99 X10'6 (4.70-6.10); RED CELL DISTRIBUTION WIDTH 14.8 % (11.5-14.5); WHITE BLOOD COUNT 14.9 X10'3 (4.5-11.0)
[2022-07-21 00:16] LABS: HEMOGLOBIN 5.9 g/dl (14.0-17.9)
[2022-07-21 00:17] LABS: HEMATOCRIT 17.6 % (42.0-52.0)
[2022-07-21] MEDS: ceFAZolin/D5W- 1GM premix 50 ML IV SCH ×3 (00:18→16:44)
--- NOTE | 2022-07-21 00:30 | NUR ---
Pt wakes and is appropriate, falls back to sleep quickly. Vagals when awake and moving, BP drops and recovers. Levophed has been at 0.15mcg/kg/min for whole shift. 4 albumins given. Critical H/H with 6hr labs. Called to Dr Busch with orders received to give 2 units PRBC. Vent weaning per RT, currently at 8bpm and 40%.
[2022-07-21 00:31] LABS: ALBUMIN 3.7 G/DL (3.4-5.0); ANION GAP 10 (8-16); BLOOD UREA NITROGEN 21 MG/DL (7-18); BUN/CREATININE RATIO 15.4 (5.4-32.0); CALCIUM 8.7 MG/DL (8.5-10.1); CHLORIDE 110 MMOL/L (99-107); CREATININE 1.36 MG/DL (0.60-1.10); GLUCOSE 175 MG/DL (70-104); MAGNESIUM 2.8 MG/DL (1.5-2.4); PHOSPHORUS 4.3 MG/DL (2.3-4.5); POTASSIUM 4.5 MMOL/L (3.5-5.1); SODIUM 141 MMOL/L (135-145); TOTAL CARBON DIOXIDE 20.9 MMOL/L (24-32); eGFR 52 ML/MIN
[2022-07-21] MEDS: vancomycin/NS 1 GM ADD-VANTAGE 250 ML IV SCH ×2 (01:07→13:48)
[2022-07-21] MEDS: morphine 2 MG/ML inj. syringe IV PRN ×3 (01:56→08:25)
[2022-07-21] MEDS: NORepinephrine 8mg/ 250ml NS 250 ML IV SCH (01:57)
--- NOTE | 2022-07-21 03:30 | NUR ---
RT at bedside about to do Spontaneous breathing trial when pt anxious and had vagal response, pressure drops to 60s/40s. 2nd unit blood finishing transfusing. Will wait to attempt trials when pt more stable.
[2022-07-21 04:46] LABS: BASOPHILS # (AUTO) 0.1 X10'3 (0-0.2); BASOPHILS % (AUTO) 0.4 % (0-1); EOSINOPHILS % (AUTO) 0.1 % (0-6); HEMATOCRIT 24.9 % (42.0-52.0); HEMOGLOBIN 8.3 g/dl (14.0-17.9); LYMPHOCYTES # (AUTO) 0.8 X10'3 (1.1-4.8); LYMPHOCYTES % (AUTO) 5.2 % (21-51); MEAN CORPUSCULAR HGB CONC 33.2 g/dL (33.0-36.5); MEAN CORPUSCULAR VOLUME 87.3 FL (78-98); MEAN PLATELET VOLUME 9.3 FL (7.4-10.4); MONOCYTES # (AUTO) 1.2 X10'3 (0-0.9); MONOCYTES % (AUTO) 7.9 % (2-12); NEUTROPHILS # (AUTO) 13.3 X10'3 (1.8-7.7); NEUTROPHILS % (AUTO) 86.4 % (42-75); PLATELET COUNT 115 X10'3 (140-440); RED BLOOD COUNT 2.85 X10'6 (4.70-6.10); WHITE BLOOD COUNT 15.4 X10'3 (4.5-11.0)
[2022-07-21 05:01] LABS: ALANINE AMINOTRANSFERASE 19 U/L (12-78); ALBUMIN 3.5 G/DL (3.4-5.0); ALBUMIN/GLOBULIN RATIO 1.7 (1.1-1.5); ALKALINE PHOSPHATASE 40 IU/L (46-116); ANION GAP 12 (8-16); ASPARTATE AMINO TRANSFERASE 24 U/L (10-37); BILIRUBIN,TOTAL 0.4 MG/DL (0.1-1.0); BLOOD UREA NITROGEN 21 MG/DL (7-18); BUN/CREATININE RATIO 15.2 (5.4-32.0); CALCIUM 8.3 MG/DL (8.5-10.1); CHLORIDE 110 MMOL/L (99-107); CREATININE 1.38 MG/DL (0.60-1.10); GLUCOSE 116 MG/DL (70-104); MAGNESIUM 2.7 MG/DL (1.5-2.4); POTASSIUM 4.5 MMOL/L (3.5-5.1); SODIUM 143 MMOL/L (135-145); TOTAL CARBON DIOXIDE 21.3 MMOL/L (24-32); TOTAL PROTEIN 5.6 G/DL (6.4-8.2); eGFR 51 ML/MIN
[2022-07-21 05:31] LABS: ABG BASE EXCESS -4.4 mmol/L (-2.0-2.0); ABG HCO3 20.8 mmol/L (22.0-26.0); ABG OXYGEN SATURATION 96.5 % (94-97); ABG PCO2 (T) 38.7 mmHg (35.0-48.0); ABG PO2 (T) 100.5 mmHg (75.0-100.0); FCOHb 0.3 % (0.0-3.9); FMetHb 0.4 % (0.0-1.5); FO2Hb 95.8 % (94-97); PATIENT TEMPERATURE 37.1; PEEP 5 cm H2O; TOTAL HEMOGLOBIN 9.3 G/dl (14.0-17.9)
--- NOTE | 2022-07-21 06:03 | NUR ---
Pt extubated to 5LNC at 0550. Painful. Good cough.
--- NOTE | 2022-07-21 06:28 | NUR ---
Call to pt's Gale, updated and let her speak to him. Problems reprioritized. Patient report given, questions answered & plan of care reviewed with Khai ANDREA.
[2022-07-21] MEDS: guaiFENesin ER 600mg tablet PO SCH ×2 (08:00→22:59)
[2022-07-21] MEDS: sennosides/docusate sodium tablet PO SCH ×2 (08:00→20:00)
[2022-07-21] MEDS: lisinopril 10 MG tablet PO SCH (08:00)
[2022-07-21] MEDS: mupirocin 2% ointment 22GM NS SCH ×2 (08:00→22:57)
[2022-07-21] MEDS: tamsulosin 0.4mg capsule PO SCH (08:25)
[2022-07-21] MEDS: pregabalin 25mg capsule PO SCH ×2 (08:27→20:00)
[2022-07-21] MEDS: atorvastatin 20mg tablet PO SCH (08:27)
[2022-07-21] MEDS: ascorbic acid 500mg tablet PO SCH ×2 (08:28→16:46)
[2022-07-21] MEDS: aspirin 81mg tab.chew PO SCH (08:28)
[2022-07-21] MEDS: HYDROcodone/acetaminophen 10/325mg tab PO PRN ×4 (09:17→22:59)
[2022-07-21 10:22] LABS: BASOPHILS % (AUTO) 0.1 % (0-1); EOSINOPHILS % (AUTO) 0 % (0-6); HEMATOCRIT 23.6 % (42.0-52.0); HEMOGLOBIN 7.9 g/dl (14.0-17.9); LYMPHOCYTES # (AUTO) 0.7 X10'3 (1.1-4.8); LYMPHOCYTES % (AUTO) 4.2 % (21-51); MEAN CORPUSCULAR HEMOGLOBIN 29.2 PG (27.0-31.0); MEAN CORPUSCULAR HGB CONC 33.7 g/dL (33.0-36.5); MEAN CORPUSCULAR VOLUME 86.8 FL (78-98); MEAN PLATELET VOLUME 9.5 FL (7.4-10.4); MONOCYTES # (AUTO) 1.6 X10'3 (0-0.9); MONOCYTES % (AUTO) 9.9 % (2-12); NEUTROPHILS # (AUTO) 14.2 X10'3 (1.8-7.7); NEUTROPHILS % (AUTO) 85.8 % (42-75); PLATELET COUNT 109 X10'3 (140-440); RED BLOOD COUNT 2.72 X10'6 (4.70-6.10); RED CELL DISTRIBUTION WIDTH 15.7 % (11.5-14.5); WHITE BLOOD COUNT 16.6 X10'3 (4.5-11.0)
[2022-07-21 10:37] LABS: ALANINE AMINOTRANSFERASE 18 U/L (12-78); ALBUMIN 3.6 G/DL (3.4-5.0); ALBUMIN/GLOBULIN RATIO 1.6 (1.1-1.5); ALKALINE PHOSPHATASE 45 IU/L (46-116); ANION GAP 13 (8-16); ASPARTATE AMINO TRANSFERASE 26 U/L (10-37); BILIRUBIN,TOTAL 0.4 MG/DL (0.1-1.0); BLOOD UREA NITROGEN 23 MG/DL (7-18); BUN/CREATININE RATIO 14.9 (5.4-32.0); CALCIUM 8.3 MG/DL (8.5-10.1); CHLORIDE 109 MMOL/L (99-107); CREATININE 1.54 MG/DL (0.60-1.10); GLUCOSE 226 MG/DL (70-104); SODIUM 142 MMOL/L (135-145); TOTAL PROTEIN 5.8 G/DL (6.4-8.2); eGFR 45 ML/MIN
--- NOTE | 2022-07-21 10:56 | NUR ---
noted at bedside taking a photo with camera phone. informed that no photos allowed @ bedside
--- NOTE | 2022-07-21 11:41 | NUR ---
Nutrition consult: Pt POD #1 s/p CABG x 4. Pt would benefit from nutrition therapy education once appropriate. Noted patient's lipid panel is WNL. Will continue to follow. Addendum: 07/21/22 at [address] Amended: Links added.
[2022-07-21] MEDS ORDERED: dextrose 50%-water 50ml dispensing syringe IV PRN ×2 (11:45)
[2022-07-21] MEDS ORDERED: glucagon, human recombinant 1mg kit SUBCUT PRN (11:45)
[2022-07-21] MEDS ORDERED: DEXTROSE 15 GM of carb/4 tabs (each vial/BOTTLE has 4 tablets) PO PRN ×2 (11:45)
[2022-07-21] MEDS ORDERED: MESSAGE TO PHARMACY PO ONE (11:45)
[2022-07-21] MEDS: metoprolol tartrate 12.5mg (1/2 tablet) PO SCH ×2 (13:45→22:58)
[2022-07-21] MEDS: insulin Lispro (HumaLOG) vial - multi-dose SQ SCH (17:28)
[2022-07-21] MEDS: insulin glargine (Lantus) pen - multi-dose SQ SCH (20:24)
[2022-07-22] VITALS (40 sets, daily range): BP systolic 90–132; BP diastolic 39–67
[2022-07-22] MEDS: vancomycin/NS 1 GM ADD-VANTAGE 250 ML IV SCH (01:00)
[2022-07-22] MEDS: NORepinephrine 8mg/ 250ml NS 250 ML IV SCH (01:27)
[2022-07-22] MEDS: ceFAZolin/D5W- 1GM premix 50 ML IV SCH ×2 (01:28→13:27)
[2022-07-22] MEDS: HYDROcodone/acetaminophen 10/325mg tab PO PRN ×2 (02:48→04:02)
[2022-07-22 04:27] LABS: BASOPHILS % (AUTO) 0 % (0-1); EOSINOPHILS % (AUTO) 0 % (0-6); LYMPHOCYTES # (AUTO) 0.6 X10'3 (1.1-4.8); LYMPHOCYTES % (AUTO) 3.5 % (21-51); MEAN CORPUSCULAR HEMOGLOBIN 28.9 PG (27.0-31.0); MEAN CORPUSCULAR HGB CONC 32.8 g/dL (33.0-36.5); MEAN CORPUSCULAR VOLUME 88.1 FL (78-98); MEAN PLATELET VOLUME 10.1 FL (7.4-10.4); MONOCYTES # (AUTO) 1.8 X10'3 (0-0.9); MONOCYTES % (AUTO) 10.1 % (2-12); NEUTROPHILS # (AUTO) 15.7 X10'3 (1.8-7.7); NEUTROPHILS % (AUTO) 86.4 % (42-75); PLATELET COUNT 103 X10'3 (140-440); RED BLOOD COUNT 2.32 X10'6 (4.70-6.10); RED CELL DISTRIBUTION WIDTH 16.1 % (11.5-14.5); WHITE BLOOD COUNT 18.2 X10'3 (4.5-11.0)
[2022-07-22 04:34] LABS: HEMATOCRIT 20.4 % (42.0-52.0); HEMOGLOBIN 6.7 g/dl (14.0-17.9)
--- NOTE | 2022-07-22 05:00 | NUR ---
Dr. Busch notified of Hand H of 6.7 / 20.4 Orders received for 1 unit of PRBC.
[2022-07-22 05:01] LABS: ALANINE AMINOTRANSFERASE 16 U/L (12-78); ALBUMIN 3.3 G/DL (3.4-5.0); ALBUMIN/GLOBULIN RATIO 1.3 (1.1-1.5); ALKALINE PHOSPHATASE 51 IU/L (46-116); ANION GAP 9 (8-16); ASPARTATE AMINO TRANSFERASE 28 U/L (10-37); BILIRUBIN,TOTAL 0.3 MG/DL (0.1-1.0); BLOOD UREA NITROGEN 37 MG/DL (7-18); CALCIUM 7.8 MG/DL (8.5-10.1); CHLORIDE 106 MMOL/L (99-107); CREATININE 2.06 MG/DL (0.60-1.10); GLUCOSE 267 MG/DL (70-104); SODIUM 139 MMOL/L (135-145); TOTAL CARBON DIOXIDE 24.1 MMOL/L (24-32); TOTAL PROTEIN 5.8 G/DL (6.4-8.2); eGFR 32 ML/MIN
--- NOTE | 2022-07-22 06:59 | NUR ---
I received report from Migdalia ANDREA. Pt is A/O reports 0/10 pain and in no apparent distress. I will continue to monitor. Pt has sitter at bedside.
[2022-07-22] MEDS: lisinopril 10 MG tablet PO SCH (08:00)
[2022-07-22] MEDS: pregabalin 25mg capsule PO SCH ×2 (08:39→21:26)
[2022-07-22] MEDS: sennosides/docusate sodium tablet PO SCH ×2 (08:41→20:00)
[2022-07-22] MEDS: tamsulosin 0.4mg capsule PO SCH (08:42)
[2022-07-22] MEDS: guaiFENesin ER 600mg tablet PO SCH ×2 (08:42→21:24)
[2022-07-22] MEDS: aspirin 81mg tab.chew PO SCH (08:43)
[2022-07-22] MEDS: atorvastatin 20mg tablet PO SCH (08:43)
[2022-07-22] MEDS: pantoprazole 40mg Tablet.DR PO SCH (08:45)
[2022-07-22 08:57] LABS: MAGNESIUM 2.4 MG/DL (1.5-2.4); PHOSPHORUS 5.3 MG/DL (2.3-4.5)
[2022-07-22] MEDS ORDERED: furosemide 20 MG/2 ML vial IV ONE (09:25)
[2022-07-22] MEDS: metoprolol tartrate 12.5mg (1/2 tablet) PO SCH ×2 (11:25→21:26)
[2022-07-22] MEDS: mupirocin 2% ointment 22GM NS SCH (11:27)
[2022-07-22] MEDS: insulin Lispro (HumaLOG) vial - multi-dose SQ SCH ×2 (13:59→19:05)
[2022-07-22] MEDS: HYDROcodone/acetaminophen 5mg/325mg tablet PO PRN ×2 (14:55→21:02)
--- NOTE | 2022-07-22 17:43 | NUR ---
RT paged. [id number]- [employer]. Please come and set up bipap with oxygen attachment. Isabel Holden LVN
--- NOTE | 2022-07-22 17:46 | NUR ---
Air Compressor Engineer recieved [facility] Pt arrived on unit 1700hrs, alert and oriented x 3, per report pt was hallucinating requiring a sitter. Pt has a sitter at bedside. Pt breathing even and unlabored on 5 LPM via nasal cannula. Pt has dry dressings noted to chest x 2 with chest tube. on 20mmhg water seal, currently only 1200CC. 40CC difference. Peripheral pulses palpable x 4, distal fingertips and toes cool to touch, no drainage noted on perez wrap to left leg, pt voids via urinal. BP 112/55, HR 76, RR24, afebrile, Denies pain. at bedside. Addendum: 07/22/22 at 1755 by Tone Holden LVN Amended: Links added. Addendum: 07/22/22 at 1759 by Tone Holden LVN Non pitting edema noted to bilateral dorsal foot. Addendum: 07/22/22 at 1802 by Tone Holden LVN Pt denies chest pain.
[2022-07-22 17:53] LABS: HEMOGLOBIN 8.2 g/dl (14.0-17.9); MEAN CORPUSCULAR HEMOGLOBIN 28.9 PG (27.0-31.0); MEAN CORPUSCULAR VOLUME 87.6 FL (78-98); MEAN PLATELET VOLUME 10.1 FL (7.4-10.4); PLATELET COUNT 120 X10'3 (140-440); RED BLOOD COUNT 2.85 X10'6 (4.70-6.10); RED CELL DISTRIBUTION WIDTH 15.5 % (11.5-14.5); WHITE BLOOD COUNT 18.9 X10'3 (4.5-11.0)
--- NOTE | 2022-07-22 18:47 | NUR ---
Problems reprioritized. Patient report given, questions answered & plan of care reviewed with Khadar ANDREA. Bedside report given..
--- NOTE | 2022-07-22 18:54 | NUR ---
Patient in room PCU 3015. I have received report from Tone ANDREA and had the opportunity to ask questions and assume patient care.
[2022-07-22] MEDS: insulin glargine (Lantus) pen - multi-dose SQ SCH (23:47)
[2022-07-23 02:00] VITALS: BP 117/57
[2022-07-23] MEDS: HYDROcodone/acetaminophen 5mg/325mg tablet PO PRN ×2 (02:19→07:12)
[2022-07-23 06:00] VITALS: BP 120/54
[2022-07-23] MEDS: atorvastatin 20mg tablet PO SCH (07:10)
[2022-07-23] MEDS: lisinopril 10 MG tablet PO SCH (07:10)
[2022-07-23] MEDS: pregabalin 25mg capsule PO SCH ×2 (07:10→22:27)
[2022-07-23] MEDS: metoprolol tartrate 12.5mg (1/2 tablet) PO SCH ×2 (07:10→20:00)
[2022-07-23] MEDS: guaiFENesin ER 600mg tablet PO SCH ×2 (07:10→22:24)
[2022-07-23] MEDS: pantoprazole 40mg Tablet.DR PO SCH (07:10)
[2022-07-23] MEDS: tamsulosin 0.4mg capsule PO SCH (07:10)
[2022-07-23] MEDS: aspirin 81mg tab.chew PO SCH (07:11)
[2022-07-23] MEDS: sennosides/docusate sodium tablet PO SCH ×2 (07:11→22:25)
[2022-07-23] MEDS: morphine 2 MG/ML inj. syringe IV PRN (07:11)
[2022-07-23 07:31] LABS: ALBUMIN 3.2 G/DL (3.4-5.0); ANION GAP 10 (8-16); BLOOD UREA NITROGEN 38 MG/DL (7-18); BUN/CREATININE RATIO 24.7 (5.4-32.0); CALCIUM 7.8 MG/DL (8.5-10.1); CHLORIDE 103 MMOL/L (99-107); CREATININE 1.54 MG/DL (0.60-1.10); GLUCOSE 190 MG/DL (70-104); PHOSPHORUS 2.8 MG/DL (2.3-4.5); POTASSIUM 3.9 MMOL/L (3.5-5.1); SODIUM 136 MMOL/L (135-145); TOTAL CARBON DIOXIDE 23.3 MMOL/L (24-32); eGFR 45 ML/MIN
--- NOTE | 2022-07-23 07:50 | NUR ---
Problems reprioritized. Patient report given, questions answered & plan of care reviewed with Michel ANDREA.
[2022-07-23] MEDS ORDERED: HYDROcodone/acetaminophen 10/325mg tab PO PRN (08:30)
[2022-07-23 12:41] VITALS: BP 114/94
[2022-07-23] MEDS: HYDROcodone/acetaminophen 10/325mg tab PO PRN ×2 (12:43→17:21)
[2022-07-23] MEDS: busPIRone 5mg tablet PO SCH ×2 (12:43→22:24)
--- NOTE | 2022-07-23 12:49 | NUR ---
Initial: Pt s/p CABG x4 this admit advanced to NCS diet PO 100% initial meals 07/18 PM and 07/19 however nutrition intake intervention removed from EMR so no intake documentation since then. RD d/w RN who reports 100% protein and 50% starches WB this AM. Unable to accurately determine nutrition status given lack of documentation though pt likely at least partially meeting estimated needs. RD recommends strawberry Kamaljit smoothie BIDBD for wound healing; notified. Noted pt remains AOx1/confused per EMR; RD d/w RN who report pt orientation waxes/wanes throughout the day. Written high protein/HH diet eds w/ RD contact information placed in pt chart; verbal ed deferred until pt more appropriate. LBM 07/19 receiving routine senna and passing gas post-op per PA note. Will monitor for further intake documentation trends and nutrition intervention needs this admit. Rec: 1. advanced to heart healthy diet as medically indicated post-op 2. strawberry Kamaljit smoothie BIDBD for wound healing needs; pending PA verification in EMR 3. monitor for further PO documentation and ONS needs 4. routine bowel care 5. weekly wts 6. Verbal high protein/heart healthy diet ed reinforcement once pt more appropriate Addendum: 07/23/22 at [address] Amended: Links added.
[2022-07-23] MEDS: insulin Lispro (HumaLOG) vial - multi-dose SQ SCH (14:05)
[2022-07-23 15:50] VITALS: BP 96/42
[2022-07-23] MEDS ORDERED: polyethylene glycol 3350 17gm powd pack PO PRN (16:30)
[2022-07-23 19:00] VITALS: BP 111/43
[2022-07-23 22:00] VITALS: BP 115/59
[2022-07-23] MEDS: docusate sod 100mg capsule PO SCH (22:25)
[2022-07-23] MEDS: insulin glargine (Lantus) pen - multi-dose SQ SCH (22:43)
[2022-07-24 02:00] VITALS: BP 111/50
[2022-07-24 06:00] VITALS: BP 121/50
[2022-07-24 06:45] LABS: ACT @ 1.70 U 286 SEC (193-297); ACT @ 2.84 U 418 SEC (260-420); BASELINE ACT 158 SEC (101-148); PATIENT WEIGHT 96.0k KG
[2022-07-24] MEDS: pantoprazole 40mg Tablet.DR PO SCH (07:00)
[2022-07-24] MEDS: docusate sod 100mg capsule PO SCH ×2 (07:01→19:20)
[2022-07-24] MEDS: guaiFENesin ER 600mg tablet PO SCH ×2 (07:01→19:13)
[2022-07-24] MEDS: sennosides/docusate sodium tablet PO SCH ×2 (07:01→19:13)
[2022-07-24] MEDS: pregabalin 25mg capsule PO SCH ×2 (07:01→19:13)
[2022-07-24] MEDS: aspirin 81mg tab.chew PO SCH (07:01)
[2022-07-24] MEDS: tamsulosin 0.4mg capsule PO SCH (07:01)
[2022-07-24] MEDS: busPIRone 5mg tablet PO SCH ×3 (07:01→21:08)
[2022-07-24] MEDS: atorvastatin 20mg tablet PO SCH (07:01)
[2022-07-24] MEDS: metoprolol tartrate 12.5mg (1/2 tablet) PO SCH ×2 (07:02→19:16)
[2022-07-24] MEDS: lisinopril 10 MG tablet PO SCH (07:02)
[2022-07-24 08:01] LABS: BASOPHILS % (AUTO) 0.3 % (0-1); EOSINOPHILS # (AUTO) 0.1 X10'3 (0-0.9); EOSINOPHILS % (AUTO) 0.5 % (0-6); HEMATOCRIT 26.5 % (42.0-52.0); HEMOGLOBIN 8.8 g/dl (14.0-17.9); LYMPHOCYTES # (AUTO) 0.9 X10'3 (1.1-4.8); MEAN CORPUSCULAR HEMOGLOBIN 29.2 PG (27.0-31.0); MEAN CORPUSCULAR HGB CONC 33.1 g/dL (33.0-36.5); MEAN CORPUSCULAR VOLUME 88.2 FL (78-98); MEAN PLATELET VOLUME 10.1 FL (7.4-10.4); MONOCYTES # (AUTO) 1.7 X10'3 (0-0.9); MONOCYTES % (AUTO) 10.7 % (2-12); NEUTROPHILS # (AUTO) 13.1 X10'3 (1.8-7.7); NEUTROPHILS % (AUTO) 82.5 % (42-75); PLATELET COUNT 156 X10'3 (140-440); RED BLOOD COUNT 3.01 X10'6 (4.70-6.10); WHITE BLOOD COUNT 15.9 X10'3 (4.5-11.0)
[2022-07-24 08:21] LABS: ALBUMIN 3.5 G/DL (3.4-5.0); ANION GAP 10 (8-16); BLOOD UREA NITROGEN 39 MG/DL (7-18); BUN/CREATININE RATIO 28.5 (5.4-32.0); CHLORIDE 104 MMOL/L (99-107); CREATININE 1.37 MG/DL (0.60-1.10); GLUCOSE 165 MG/DL (70-104); MAGNESIUM 2.7 MG/DL (1.5-2.4); POTASSIUM 4.2 MMOL/L (3.5-5.1); SODIUM 138 MMOL/L (135-145); TOTAL CARBON DIOXIDE 24.4 MMOL/L (24-32); eGFR 52 ML/MIN
[2022-07-24] MEDS: insulin Lispro (HumaLOG) vial - multi-dose SQ SCH ×2 (08:36→13:37)
[2022-07-24 12:15] VITALS: BP 100/47
[2022-07-24 16:15] VITALS: BP 95/43
[2022-07-24 18:00] VITALS: BP 109/51
[2022-07-24] MEDS: insulin glargine (Lantus) pen - multi-dose SQ SCH (21:08)
[2022-07-25 02:00] VITALS: BP 106/42
[2022-07-25 06:00] VITALS: BP 114/58
[2022-07-25 07:13] LABS: BASOPHILS # (AUTO) 0.1 X10'3 (0-0.2); BASOPHILS % (AUTO) 0.5 % (0-1); EOSINOPHILS # (AUTO) 0.3 X10'3 (0-0.9); EOSINOPHILS % (AUTO) 2.6 % (0-6); HEMATOCRIT 24.4 % (42.0-52.0); HEMOGLOBIN 8.3 g/dl (14.0-17.9); LYMPHOCYTES % (AUTO) 9.4 % (21-51); MEAN CORPUSCULAR HEMOGLOBIN 29.9 PG (27.0-31.0); MEAN CORPUSCULAR HGB CONC 33.9 g/dL (33.0-36.5); MEAN CORPUSCULAR VOLUME 88.2 FL (78-98); MEAN PLATELET VOLUME 9.6 FL (7.4-10.4); MONOCYTES # (AUTO) 1.5 X10'3 (0-0.9); MONOCYTES % (AUTO) 14.1 % (2-12); NEUTROPHILS # (AUTO) 7.8 X10'3 (1.8-7.7); NEUTROPHILS % (AUTO) 73.4 % (42-75); PLATELET COUNT 195 X10'3 (140-440); RED BLOOD COUNT 2.77 X10'6 (4.70-6.10); RED CELL DISTRIBUTION WIDTH 15.6 % (11.5-14.5); WHITE BLOOD COUNT 10.6 X10'3 (4.5-11.0)
[2022-07-25 07:24] LABS: MAGNESIUM 2.5 MG/DL (1.5-2.4); PHOSPHORUS 2.3 MG/DL (2.3-4.5)
[2022-07-25] MEDS: guaiFENesin ER 600mg tablet PO SCH (07:48)
[2022-07-25] MEDS: tamsulosin 0.4mg capsule PO SCH (07:48)
[2022-07-25] MEDS: sennosides/docusate sodium tablet PO SCH (07:49)
[2022-07-25] MEDS: busPIRone 5mg tablet PO SCH (07:49)
[2022-07-25] MEDS: atorvastatin 20mg tablet PO SCH (07:49)
[2022-07-25] MEDS: aspirin 81mg tab.chew PO SCH (07:49)
[2022-07-25] MEDS: pregabalin 25mg capsule PO SCH (07:49)
[2022-07-25] MEDS: lisinopril 10 MG tablet PO SCH (07:50)
[2022-07-25] MEDS: metoprolol tartrate 12.5mg (1/2 tablet) PO SCH (07:51)
[2022-07-25] MEDS: docusate sod 100mg capsule PO SCH (07:51)
[2022-07-25] MEDS: pantoprazole 40mg Tablet.DR PO SCH (07:51)
[2022-07-25] MEDS: insulin Lispro (HumaLOG) vial - multi-dose SQ SCH (07:57)
[2022-07-25] MEDS ORDERED: TRAM50TA2 PO (09:14)
[2022-07-25] MEDS ORDERED: DOCU100C40 PO (09:14)
[2022-07-25] MEDS ORDERED: ACET-1008 PO (09:14)
[2022-07-25] MEDS ORDERED: LOP12.5T PO (09:14)
[2022-07-25 10:29] VITALS: BP 107/53
--- NOTE | 2022-07-25 11:41 | NUR ---
Discharge instructions given to patient with verbalized understanding. IV and telemetry discontinued. Accompanied by , leaving by wheelchair.
== END 2022-07-25 11:44 | disposition home or self-care (01) | DRG 233 ==
LOC: ER 08:31 → ED HOLD 11:39 → PCU 3S 17:43 → CICU 2S 07-20 15:21 → PCU 3S 07-22 16:52
PROVIDERS: ADMIT Internal Medicine; ATTEND Internal Medicine
PROC: 4A023N7 Measurement of Cardiac Sampling and Pressure, Left Heart, Percutaneous Approach (ICD-10-PCS; principal; 2022-07-19)
PROC: B2111ZZ Fluoroscopy of Multiple Coronary Arteries using Low Osmolar Contrast (ICD-10-PCS; 2022-07-19)
PROC: 02100Z8 Bypass Coronary Artery, One Artery from Right Internal Mammary, Open Approach (ICD-10-PCS; 2022-07-20)
PROC: 02100Z9 Bypass Coronary Artery, One Artery from Left Internal Mammary, Open Approach (ICD-10-PCS; 2022-07-20)
PROC: 021109W Bypass Coronary Artery, Two Arteries from Aorta with Autologous Venous Tissue, Open Approach (ICD-10-PCS; 2022-07-20)
PROC: 06BQ4ZZ Excision of Left Saphenous Vein, Percutaneous Endoscopic Approach (ICD-10-PCS; 2022-07-20)
PROC: 5A1221Z Performance of Cardiac Output, Continuous (ICD-10-PCS; 2022-07-20)
PROC: B24BZZ4 Ultrasonography of Heart with Aorta, Transesophageal (ICD-10-PCS; 2022-07-20)
PROC: 02L70CK Occlusion of Left Atrial Appendage with Extraluminal Device, Open Approach (ICD-10-PCS; 2022-07-20)
PROC: 30233N1 Transfusion of Nonautologous Red Blood Cells into Peripheral Vein, Percutaneous Approach (ICD-10-PCS; 2022-07-21)
DX: I21.4 Non-ST elevation (NSTEMI) myocardial infarction (principal); N17.0 Acute kidney failure with tubular necrosis; J98.11 Atelectasis; I25.10 Atherosclerotic heart disease of native coronary artery without angina pectoris; I12.9 Hypertensive chronic kidney disease with stage 1 through stage 4 chronic kidney disease, or unspecified chronic kidney disease; N18.30 Chronic kidney disease, stage 3 unspecified; D64.9 Anemia, unspecified; E11.22 Type 2 diabetes mellitus with diabetic chronic kidney disease; E11.42 Type 2 diabetes mellitus with diabetic polyneuropathy; L97.519 Non-pressure chronic ulcer of other part of right foot with unspecified severity; E11.621 Type 2 diabetes mellitus with foot ulcer; R79.89 Other specified abnormal findings of blood chemistry; E11.51 Type 2 diabetes mellitus with diabetic peripheral angiopathy without gangrene; E78.5 Hyperlipidemia, unspecified; E87.70 Fluid overload, unspecified; G47.33 Obstructive sleep apnea (adult) (pediatric); I48.0 Paroxysmal atrial fibrillation; Z87.891 Personal history of nicotine dependence; Z89.419 Acquired absence of unspecified great toe; Z88.8 Allergy status to other drugs, medicaments and biological substances; Z79.899 Other long term (current) drug therapy; Z79.82 Long term (current) use of aspirin; Z79.4 Long term (current) use of insulin
CPT/HCPCS: 36415; 36430; 36600; 71045; 71046; 80048; 80053; 80061; 81001; 82330; 82435; 82803; 82947; 82948; 83036; 83735; 83880; 84100; 84132; 84295; 84484; 85007; 85018; 85025; 85027; 85347; 85610; 85730; 86885; 86900; 86901; 86920; 87070; 87081; 93005; 93306; 93312; 93325; 93458; 93880; 93970; 94002; 94003; 94010; 94664; 94668; 94760; 96361; 96374; 96375; 97110; 97116; 97161; 97530; 99152; 99153; 99285; A4618; A6213; A6223; A6258; A6449; A7000; A7048; C1751; C1769; C1894; G0378; J0171; J0282; J0690; J1160; J1644; J1815; J1940; J2060; J2150; J2250; J2270; J2370; J2405; J2440; J2704; J2720; J2930; J3010; J3370; J3475; J3480; J3490; J7030; J7040; J7050; J7120; P9016; P9045; P9047; Q9967; S0020

== ENCOUNTER 2024-12-05 11:03 | Emergency (ER) | payer MEDICARE, BC ==
[~2024-12-05] VITALS: Ht 172.7 cm; Wt 78.3 kg
[~2024-12-05 11:03] MED LIST changes: +ACET-1008 PO; -CIPR-259 PO; +DOCU100C40 PO; -FLO0.4C PO; +INSU100V56 SQ; +KEN0.1O TOP; -KETO120S5 TOP; +LOP12.5T PO; +PREG50CA PO; -PREG50CA64 PO; +PREG50CA65 PO; +TAMS-55 PO
[2024-12-05 15:02] LABS: BASOPHILS # (AUTO) 0.1 X10'3 (0-0.2); BASOPHILS % (AUTO) 0.8 % (0-1); EOSINOPHILS # (AUTO) 0.3 X10'3 (0-0.9); EOSINOPHILS % (AUTO) 3.5 % (0-6); HEMATOCRIT 35.5 % (42.0-52.0); HEMOGLOBIN 11.9 g/dl (14.0-17.9); LYMPHOCYTES # (AUTO) 1.2 X10'3 (1.1-4.8); LYMPHOCYTES % (AUTO) 13.2 % (21-51); MEAN CORPUSCULAR HEMOGLOBIN 30.3 PG (27.0-31.0); MEAN CORPUSCULAR HGB CONC 33.6 g/dL (33.0-36.5); MEAN CORPUSCULAR VOLUME 90.2 FL (78-98); MEAN PLATELET VOLUME 8.5 FL (7.4-10.4); NEUTROPHILS # (AUTO) 6.4 X10'3 (1.8-7.7); NEUTROPHILS % (AUTO) 71.5 % (42-75); PLATELET COUNT 307 X10'3 (140-440); RED BLOOD COUNT 3.94 X10'6 (4.70-6.10)
[2024-12-05 15:14] LABS: ALANINE AMINOTRANSFERASE 20 U/L (12-78); ALBUMIN 3.5 G/DL (3.4-5.0); ALKALINE PHOSPHATASE 109 IU/L (46-116); ANION GAP 9 (8-16); ASPARTATE AMINO TRANSFERASE 10 U/L (10-37); BILIRUBIN,TOTAL 0.3 MG/DL (0.1-1.0); BLOOD UREA NITROGEN 20 MG/DL (7-18); BUN/CREATININE RATIO 17.9 (10.0-20.0); C-REACTIVE PROTEIN 3.03 MG/DL (0.0-0.5); CALCIUM 8.4 MG/DL (8.5-10.1); CHLORIDE 105 MMOL/L (99-107); CREATININE 1.12 MG/DL (0.60-1.10); GLUCOSE 114 MG/DL (70-104); SODIUM 142 MMOL/L (135-145); TOTAL CARBON DIOXIDE 27.7 MMOL/L (24-32); TOTAL PROTEIN 6.9 G/DL (6.4-8.2); eCRCL 59 ML/MIN; eGFR 65 ML/MIN
--- NOTE | 2024-12-05 16:17 | RADIOLOGY REPORT ---
EXAM: XR Left Knee, 3 Views CLINICAL INDICATION: knee pain, post op fall TECHNIQUE: Three views of the left knee. COMPARISON: None FINDINGS: BONES/JOINTS: Total knee replacement. Intact hardware. Anatomic position. No acute fracture. No dislocation. SOFT TISSUES: Soft tissue swelling. VASCULATURE: Vessel calcification. OTHER FINDINGS: . . . IMPRESSION: Postoperative changes as above.
--- NOTE | 2024-12-05 17:04 | Physician Documentation ---
History of Present Illness ~ Chief Complaint: Post-operative complication Stated Complaint: POST OP COMPLICATIONS Time Seen by MD: 13:59 Primary Medical Doctor: Dr. Alan HPI Patient is seen today with complaints of pain and swelling and drainage from his left knee and states he is now six weeks out from left knee total knee arthroplasty. Patient states he fell two weeks ago and hurt his left knee and was seen by his cam specialist just recently and was cleared by him however since that time he has experienced increased swelling and warmth and no drainage from his left knee. Tetanus witin 5 years: No Medication Reconciliation Allergies: Coded Allergies: hydroxyzine (Verified Allergy, Unknown, 07/18/22) moexipril (Verified Allergy, Unknown, 07/18/22) Uncoded Allergies: DIABETES 1X/W INJECTION (Allergy, Severe, vomiting,swelling, hives, 03/22/22) Scheduled Aspirin (Aspir 81), 1 TAB PO DAILY, (Reported) Atorvastatin Calcium (Atorvastatin Calcium), 1 TAB PO DAILY, (Reported) Docusate Sodium (Docusate Sodium), 100 MG PO BID Lisinopril (Lisinopril), 1 TAB DAILY, (Reported) Metformin HCl (Metformin HCl), 2 TAB PO BID, (Reported) Metoprolol Tartrate (Lopressor tablet), 12.5 MG PO Q12H Pregabalin (Pregabalin), 2 CAP PO BID, (Reported) Pregabalin (Lyrica), 1 CAP PO DAILY AT NOON, (Reported) Tamsulosin Hcl* (Flomax*), 1 TAB PO DAILY, (Reported) Scheduled PRN Acetaminophen (Tylenol), 650 MG PO Q6H PRN for mild pain, fever>100.5 Insulin Glargine,Hum.rec.anlog (Insulin Glargine), 10 UNITS SQ HS PRN for IF GLUCOSE > 140 2H AFTERMEAL, (Reported) Triamcinolone Acetonide 0.1% Crm* (Kenalog 0.1% Crm*), 1 APPLIC TOP BID PRN for itching, (Reported) Past Medical History Past Medical History: *CARDIOVASCULAR*, Hypertension, Diabetes Past Surgical History: noncontributory Alcohol Use: None Drug Use: none Lives with: Spouse Lives In: Home Occupation: retired Review of Systems Constitutional: Denies: chills, fever, weakness Eyes: Denies: pain, blurred vision ENT: Denies: ear pain, nose pain, throat pain, mouth pain Respiratory: Denies: cough, shortness of breath Cardiovascular: Denies: chest pain, palpitations Gastrointestinal: Denies: abdominal pain, nausea, vomiting Genitourinary: Denies: burning, dysuria Male Genitalia: Denies: penile discharge, testicular pain Neurological: Denies: headache, dizziness Musculoskeletal: Denies: pain, swelling Integumentary: Denies: rash, lesions Allergic/Immunologic: Denies: hives, itching Hematologic/Lymphatic: Denies: no symptoms reported Psychiatric: Denies: depression, anxiety Physical Exam Vital Signs: Temperature: 98.0, Source: Temporal, Weight: 78.300 Oxygen Flow Rate: 0 Physical Exam General: Awake and Alert, no acute distress. HEENT: Conjunctiva pink, Sclera clear, Mucus Membranes moist. Neck: Supple without masses and tenderness. Resp: Unlabored. Lungs clear to auscultation bilaterally. Heart: Regular Rate and rhythm, normal S1 and S2 without murmur, rub or gallop. Musculoskeletal: Patient on exam does have very mild warmth of the left knee with some noted swelling and palpable seroma superiorly to the patella but no significant erythema or tenderness to palpation and no induration of the left kn ee. There does appear to have been some serosanguineous drainage but no purulent drainage from the healing incision. Patient is ambulatory without significant pain. Patient is neurovascularly intact distally. Motor function is intact distally. Extremities: No cyanosis,clubbing or edema. Skin: Warm and Dry. Progress Results/Orders Results/Orders Orders - SHAUNA WHITE PAC Knee Limited (Ap/Lat) (12/05/24 15:49) Completed Orders - SHAUNA WHITE PAC ESR (12/05/24 14:28) C-Reactive Protein (12/05/24 14:28) CMP (12/05/24 14:28) Cbc/Diff (12/05/24 14:28) Knee Limited (Ap/Lat) (12/05/24 15:49) Vital Signs 12/05/24 12/05/24 12/05/24 11:08 14:08 15:34 Temp 98.0 Pulse 77 65 Resp 15 16 B/P (MAP) 133/63 129/66 (87) Pulse Ox 98 96 O2 Flow Rate 0 Laboratory Tests Test 12/05/24 13:58 12/05/24 14:50 Glucometer 122 H White Blood Count 9.0 Red Blood Count 3.94 L Hemoglobin 11.9 L Hematocrit 35.5 L Mean Corpuscular Volume 90.2 Mean Corpuscular Hemoglobin 30.3 Mean Corpuscular Hemoglobin Concent 33.6 Red Cell Distribution Width 16.0 H Platelet Count 307 Mean Platelet Volume 8.5 Neutrophils (%) (Auto) 71.5 Lymphocytes (%) (Auto) 13.2 L Monocytes (%) (Auto) 11.0 Eosinophils (%) (Auto) 3.5 Basophils (%) (Auto) 0.8 Neutrophils # (Auto) 6.4 Lymphocytes # (Auto) 1.2 Monocytes # (Auto) 1.0 H Eosinophils # (Auto) 0.3 Basophils # (Auto) 0.1 CBC Comment Erythrocyte Sedimentation Rate 18 Sodium Level 142 Potassium Level 4.0 Chloride Level 105 Carbon Dioxide Level 27.7 Anion Gap 9 Blood Urea Nitrogen 20 H Creatinine 1.12 H Estimated GFR/1.73 m2 65 BUN/Creatinine Ratio 17.9 Glucose Level 114 H Calcium Level 8.4 L Total Bilirubin 0.3 Aspartate Amino Transf (AST/SGOT) 10 Alanine Aminotransferase (ALT/SGPT) 20 Alkaline Phosphatase 109 C-Reactive Protein 3.03 H Total Protein 6.9 Albumin 3.5 Globulin 3.4 Albumin/Globulin Ratio 1.0 L Chemistry Comments EKG/XRAY/CT/US/VASC/MRI Bone/Soft Tissue X-Ray (Ext.) : Additional Comment X-ray of left knee interpreted by myself today and shows post surgical changes consistent with total knee arthroplasty of the left knee with hardware in place in without any sign of acute fracture. DIAGNOSTIC RADIOLOGY Patient: JADA NDIAYE Medical Record: [id number] : 1955, Age: 69 Sex: Male Location: ER Patient Status: REG ER Service Date/Time: 12/05/24/ 1549 Ordering Physician: SHAUNA WHITE PAC Exam: KNEE LIMITED (AP/LAT) EXAM: XR Left Knee, 3 Views CLINICAL INDICATION: knee pain, post op fall TECHNIQUE: Three views of the left knee. COMPARISON: None FINDINGS: BONES/JOINTS: Total knee replacement. Intact hardware. Anatomic position. No acute fracture. No dislocation. SOFT TISSUES: Soft tissue swelling. VASCULATURE: Vessel calcification. OTHER FINDINGS: . . . IMPRESSION: Postoperative changes as above. Electronically Signed by:AMOL ROSS MD Date & Time: 12/05/241614 Dictated by: AMOL ROSS MD Dictation date and time: 12/05/241614 Primary Care Provider: NO PRIMARY CARE PROVIDER cc: SHAUNA WHITE PAC ~ Medical Decision Making Findings Patient is seen today with complaints of pain and swelling and drainage from his left knee and states he is now six weeks out from left knee total knee arthroplasty. Patient states he fell two weeks ago and hurt his left knee and was seen by his cam specialist just recently and was cleared by him however since that time he has experienced increased swelling and warmth and no drainage from his left knee. Patient's labs show no sign of leukocytosis, no elevated white count, ESR is normal and CRP is mildly elevated at three. Patient has likely seroma formation of left knee. Patient will follow up with Dr. Lujan his surgeon cam specialist as soon as possible for further eval and treatment as needed. X-ray of left knee shows no sign of acute fracture with hardware appearing to be in place. Return to ED with any worsening, concerning or changing symptoms. Shared decision-making utilized today. Departure Disposition: HOME / SELF CARE / HOMELESS Impression: Primary Impression: Seroma after procedure Condition: Stable Discharge Instructions: Seroma Additional Instructions: Patient's labs show no sign of leukocytosis, no elevated white count, ESR is normal and CRP is mildly elevated at three. Patient has likely seroma formation of left knee. Patient will follow up with Dr. Lujan his surgeon cam specialist as soon as possible for further eval and treatment as needed. X-ray of left knee shows no sign of acute fracture with hardware appearing to be in place. Return to ED with any worsening, concerning or changing symptoms. Shared decision-making utilized today. Referrals: NO PRIMARY CARE PROVIDER (PCP) Signature Scribe Signature: No scribe Attestation: no scribe SHAUNA WHITE PAC December 05, 2024 17:04
[2024-12-05 17:53] VITALS: BP 147/71; PULSE 80; RESP 16; TEMP 98; O2SAT 98
== END 2024-12-05 17:55 | disposition home or self-care (01) ==
LOC: ER 11:04
DX: M96.842 Postprocedural seroma of a musculoskeletal structure following a musculoskeletal system procedure (principal); E11.9 Type 2 diabetes mellitus without complications; I10 Essential (primary) hypertension; Z88.8 Allergy status to other drugs, medicaments and biological substances; Z79.82 Long term (current) use of aspirin
CPT/HCPCS: 36415; 73560; 80053; 82948; 85025; 85651; 86140; 99284; A6449

== ENCOUNTER 2025-04-10 16:14 | Emergency (ER) | payer MEDICARE, BC ==
[~2025-04-10] VITALS: Ht 172.7 cm; Wt 86.8 kg
[2025-04-10 16:19] VITALS: BP 145/98; PULSE 66; RESP 18; O2SAT 96
--- NOTE | 2025-04-10 18:09 | Physician Documentation ---
History of Present Illness ~ Chief Complaint: Bite-animal Stated Complaint: RABIES VACCINE Time Seen by MD: 18:02 Primary Medical Doctor: Dr. Alan HPI Very pleasant 70-year-old male was seen at urgent Care recently for multiple rat bites that occurred around noon today. Update his tetanus and with Tdap recommend patient come to the ER for rabies vaccine. Day of Onset: Apr 10, 2025 Tetanus within 5 years?: No Medication Reconciliation Allergies: Coded Allergies: hydroxyzine (Verified Allergy, Unknown, 07/18/22) moexipril (Verified Allergy, Unknown, 07/18/22) Uncoded Allergies: DIABETES 1X/W INJECTION (Allergy, Severe, vomiting,swelling, hives, 03/22/22) Scheduled Aspirin (Aspir 81), 1 TAB PO DAILY, (Reported) Atorvastatin Calcium (Atorvastatin Calcium), 1 TAB PO DAILY, (Reported) Docusate Sodium (Docusate Sodium), 100 MG PO BID Lisinopril (Lisinopril), 1 TAB DAILY, (Reported) Metformin HCl (Metformin HCl), 2 TAB PO BID, (Reported) Metoprolol Tartrate (Lopressor tablet), 12.5 MG PO Q12H Pregabalin (Pregabalin), 2 CAP PO BID, (Reported) Pregabalin (Lyrica), 1 CAP PO DAILY AT NOON, (Reported) Tamsulosin Hcl* (Flomax*), 1 TAB PO DAILY, (Reported) Scheduled PRN Acetaminophen (Tylenol), 650 MG PO Q6H PRN for mild pain, fever>100.5 Insulin Glargine,Hum.rec.anlog (Insulin Glargine), 10 UNITS SQ HS PRN for IF GLU COSE > 140 2H AFTERMEAL, (Reported) Triamcinolone Acetonide 0.1% Crm* (Kenalog 0.1% Crm*), 1 APPLIC TOP BID PRN for itching, (Reported) Discontinued Medications Rabies Immune Globulin/Pf (Hyperrab 300 Unit/ml Vial), 1 APPLICATOR SQ ONCE Rabies Vaccine (Pcec)/Pf (Rabavert Rabies Vaccine Kit), 1 APPLICATOR IM ONCE Past Medical History Past Medical History: *CARDIOVASCULAR*, Hypertension, Diabetes Past Surgical History: noncontributory Alcohol Use: None Drug Use: none Lives with: Spouse Lives In: Home Occupation: retired Review of Systems All Other Systems at this time: Reviewed and Negative ROS As stated above in the HPI, otherwise all systems are reviewed and negative. Physical Exam Vital Signs: Temperature: 97.9, Source: Temporal, Heart Rate: 66, Respiratory Rate: 18, BP: 145/98, Pulse Oximetry: 96, Weight: 86.800 Oxygen Flow Rate: 0 Physical Exam General: Alert, no apparent distress. Gastrointestinal: Soft, nontender, nondistended. Bowels sounds present. Extremities: Normal range of motion, no deformity. smal bites on left knee.. bitres on left hand and forearm Neurologic: Oriented x4. Psychiatric: Normal mood and affect. Skin: Normal color, warm and dry. No edema, no ecchymosis. Progress Results/Orders Results/Orders Completed Orders - STAN BLISS NP Rabies Vaccine (Pcec)/Pf (Rabavert Rabie (04/10/25 18:35) Rabies Immune Globulin/Pf Inj (Hyperrab (04/10/25 18:31) Medications Received in ER Medications (Trade) Dose Ordered Sig/Ines Route PRN Reason Start Time Stop Time Status Last Admin Dose Admin (Rabavert Rabies Vaccine kit) 2.5 unit ONCE ONCE IMVAC 04/10/25 18:35 04/10/25 18:36 DC 04/10/25 19:24 2.5 UNIT (Hyperrab S-D immune globulin inj) 1,740 unit ONCE STAT IMVAC 04/10/25 18:31 04/10/25 18:32 DC 04/10/25 19:38 1,740 UNIT Vital Signs 04/10/25 04/10/25 16:19 18:49 Temp 97.9 97.9 Pulse 66 Resp 18 B/P (MAP) 145/98 Pulse Ox 96 O2 Flow Rate 0 Medical Decision Making Findings per the request of [facility],t patient was started on vaccine protocol for rabies. Differential Dx:Considerations: Include: Abrasion, Allergic reaction, Anaphylaxis, Cellulitis, Contusion, Fracture, Hematoma, Insect envenomation, Laceration, Neurovascular injury, Punture wound, Retained foreign body, Urticaria, Other Departure Disposition: 01 HOME / SELF CARE / HOMELESS Impression: Primary Impression: Rat bite Condition: Stable Discharge Instructions: Animal Bite, Adult Additional Instructions: please return on days 3, 7, and 14 to complete your rabies vaccine protocol.. Return for any worsening symptoms ,take your previously antibiotics as prescribed Referrals: NO PRIMARY CARE PROVIDER (PCP) Signature Scribe Signature: Scribed for Stan Bliss Buffer Inflated Pad by Stan Bae NP . 04/10/25 18:22 Attestation: Scribed for Stan Bliss Buffer Inflated Pad by Stan Bae NP . 04/10/25 22:56 STAN BLISS NP Apr 10, 2025 18:09
[2025-04-10] MEDS ORDERED: [UNRECOGNIZED DRUG - CODE] IM (18:13)
[2025-04-10] MEDS ORDERED: [UNRECOGNIZED DRUG - CODE] SQ (18:13)
[2025-04-10 18:49] VITALS: TEMP 97.9
[2025-04-10] MEDS: rabies immune globulin/PF 150 unit/ml inj IMVAC STA (19:38)
== END 2025-04-10 20:03 | disposition home or self-care (01) ==
LOC: ER 16:14
DX: S81.052A Open bite, left knee, initial encounter (principal); E11.9 Type 2 diabetes mellitus without complications; I10 Essential (primary) hypertension; Z88.8 Allergy status to other drugs, medicaments and biological substances; W53.11XA Bitten by rat, initial encounter; Y93.89 Activity, other specified; Y92.89 Other specified places as the place of occurrence of the external cause; Y99.8 Other external cause status
CPT/HCPCS: 90375; 90675; 96372; 99284; G0008; 90376; 90471

== ENCOUNTER 2025-04-13 17:49 | Emergency (ER) | payer MEDICARE, BC ==
[~2025-04-13] VITALS: Ht 172.7 cm; Wt 87.0 kg
--- NOTE | 2025-04-13 18:54 | Physician Documentation ---
HPI ~ General Chief Complaint: Medication Request Stated Complaint: RABIES VACCINE- 2ND Time Seen by MD: 18:51 Primary Medical Doctor: Dr. Alan History of Present Illness HPI Comments 70-year-old male presents to the emergency department for 2nd injection series of rabies prevention. No per complication from initial injection. Wounds are without signs of infection. Medication Reconciliation Allergies: Coded Allergies: hydroxyzine (Verified Allergy, Unknown, 04/13/25) moexipril (Verified Allergy, Unknown, 04/13/25) Uncoded Allergies: DIABETES 1X/W INJECTION (Allergy, Severe, vomiting,swelling, hives, 03/22/22) Scheduled Aspirin (Aspir 81), 1 TAB PO DAILY, (Reported) Atorvastatin Calcium (Atorvastatin Calcium), 1 TAB PO DAILY, (Reported) Docusate Sodium (Docusate Sodium), 100 MG PO BID Lisinopril (Lisinopril), 1 TAB DAILY, (Reported) Metformin HCl (Metformin HCl), 2 TAB PO BID, (Reported) Metoprolol Tartrate (Lopressor tablet), 12.5 MG PO Q12H Pregabalin (Pregabalin), 2 CAP PO BID, (Reported) Pregabalin (Lyrica), 1 CAP PO DAILY AT NOON, (Reported) Tamsulosin Hcl* (Flomax*), 1 TAB PO DAILY, (Reported) Scheduled PRN Acetaminophen (Tylenol), 650 MG PO Q6H PRN for mild pain, fever>100.5 Insulin Glargine,Hum.rec.anlog (Insulin Glargine), 10 UNITS SQ HS PRN for IF GLUCOSE > 140 2H AFTERMEAL, (Reported) Triamcinolone Acetonide 0.1% Crm* (Kenalog 0.1% Crm*), 1 APPLIC TOP BID PRN for itching, (Reported) Discontinued Medications Rabies Immune Globulin/Pf (Hyperrab 300 Unit/ml Vial), 1 APPLICATOR SQ ONCE Rabies Vaccine (Pcec)/Pf (Rabavert Rabies Vaccine Kit), 1 APPLICATOR IM ONCE Past Medical History Past Medical History: *CARDIOVASCULAR*, Hypertension, Diabetes Past Surgical History: noncontributory Alcohol Use: None Drug Use: none Lives with: Spouse Lives In: Home Occupation: retired Review of Systems All Other Systems at this time: Reviewed and Negative Physical Exam Physical Exam Vital Signs: Temperature: 97.6, Source: Temporal, Heart Rate: 87, Respiratory Rate: 18, BP: 145/66, Pulse Oximetry: 98, Weight: 87.000 General Appearance: alert, WD/WN, no apparent distress Pupils/EOM/Fundus: PERRLA Respiratory: no respiratory distress Chest: no accessory muscle use Neurologic: oriented x4 Motor / Sensory: no motor deficit, no sensory deficit Skin: warm/dry, other (Left upper extremity wounds healing well without signs of infection) Progress Results/Orders Results/Orders Completed Orders - LIBERTAD WHEAT Rabies Vaccine (Pcec)/Pf (Rabavert Rabie (04/13/25 18:55) Vital Signs 04/13/25 17:53 Temp 97.6 Pulse 87 Resp 18 B/P (MAP) 145/66 Pulse Ox 98 Departure Disposition: 01 HOME / SELF CARE / HOMELESS Impression: Primary Impression: Rabies vaccine administered Condition: Stable Additional Instructions: He is return Sunday for your 3rd injection. Thank you for visiting emergency department [facility]. Referrals: NO PRIMARY CARE PROVIDER (PCP) Education Educated: Patient Educated regarding: diagnosis, treatment Signature Scribe Signature: . Attestation: . LIBERTAD WHEAT Apr 13, 2025 18:54
[2025-04-13 20:07] VITALS: BP 143/84; PULSE 86; RESP 18; TEMP 98.6; O2SAT 99
== END 2025-04-13 20:08 | disposition home or self-care (01) ==
LOC: ER 17:50
DX: S41.152D Open bite of left upper arm, subsequent encounter (principal); I10 Essential (primary) hypertension; E11.9 Type 2 diabetes mellitus without complications; Z88.8 Allergy status to other drugs, medicaments and biological substances; Z79.82 Long term (current) use of aspirin; Z79.899 Other long term (current) drug therapy; W54.0XXD Bitten by dog, subsequent encounter
CPT/HCPCS: 90675; 99281; G0008; 90471

== ENCOUNTER 2025-04-15 17:41 | Emergency (ER) | payer MEDICARE, BC ==
[~2025-04-15] VITALS: Ht 172.7 cm; Wt 87.0 kg
[2025-04-15 17:55] VITALS: BP 124/62; PULSE 69; RESP 18; TEMP 97.6; O2SAT 95
--- NOTE | 2025-04-15 18:53 | Physician Documentation ---
HPI ~ General Chief Complaint: Medication Request Stated Complaint: RABIES VACCINE -3RD Time Seen by MD: 18:02 Primary Medical Doctor: Dr. Alan History of Present Illness HPI Comments Presents to the emergency department for 3rd injection of rabies series. No complications has been prior injections. No signs of infection. Otherwise doing well. Medication Reconciliation Allergies: Coded Allergies: hydroxyzine (Verified Allergy, Unknown, 04/15/25) moexipril (Verified Allergy, Unknown, 04/15/25) Uncoded Allergies: DIABETES 1X/W INJECTION (Allergy, Severe, vomiting,swelling, hives, 03/22/22) Scheduled Aspirin (Aspir 81), 1 TAB PO DAILY, (Reported) Atorvastatin Calcium (Atorvastatin Calcium), 1 TAB PO DAILY, (Reported) Docusate Sodium (Docusate Sodium), 100 MG PO BID Lisinopril (Lisinopril), 1 TAB DAILY, (Reported) Metformin HCl (Metformin HCl), 2 TAB PO BID, (Reported) Metoprolol Tartrate (Lopressor tablet), 12.5 MG PO Q12H Pregabalin (Pregabalin), 2 CAP PO BID, (Reported) Pregabalin (Lyrica), 1 CAP PO DAILY AT NOON, (Reported) Tamsulosin Hcl* (Flomax*), 1 TAB PO DAILY, (Reported) Scheduled PRN Acetaminophen (Tylenol), 650 MG PO Q6H PRN for mild pain, fever>100.5 Insulin Glargine,Hum.rec.anlog (Insulin Glargine), 10 UNITS SQ HS PRN for IF GLUCOSE > 140 2H AFTERMEAL, (Reported) Triamcinolone Acetonide 0.1% Crm* (Kenalog 0.1% Crm*), 1 APPLIC TOP BID PRN for itching, (Reported) Discontinued Medications Rabies Immune Globulin/Pf (Hyperrab 300 Unit/ml Vial), 1 APPLICATOR SQ ONCE Rabies Vaccine (Pcec)/Pf (Rabavert Rabies Vaccine Kit), 1 APPLICATOR IM ONCE Past Medical History Past Medical History: *CARDIOVASCULAR*, Hypertension, Diabetes Past Surgical History: noncontributory Alcohol Use: None Drug Use: none Lives with: Spouse Lives In: Home Occupation: retired Review of Systems All Other Systems at this time: Reviewed and Negative Physical Exam Physical Exam Vital Signs: Temperature: 97.6, Source: Temporal, Heart Rate: 69, Respiratory Rate: 18, BP: 124/62, Pulse Oximetry: 95, Weight: 87.000 General Appearance: alert, WD/WN, no apparent distress Neurologic: oriented x4 Motor / Sensory: no motor deficit Skin: warm/dry Progress Results/Orders Results/Orders Completed Orders - LIBERTAD WHEAT Rabies Vaccine (Pcec)/Pf (Rabavert Rabie (04/15/25 18:05) Medications Received in ER Medications (Trade) Dose Ordered Sig/Ines Route PRN Reason Start Time Stop Time Status Last Admin Dose Admin (Rabavert Rabies Vaccine kit) 2.5 unit ONCE ONCE IMVAC 04/15/25 18:05 04/15/25 18:06 DC 04/15/25 18:44 2.5 UNIT Vital Signs 04/15/25 17:55 Temp 97.6 Pulse 69 Resp 18 B/P (MAP) 124/62 Pulse Ox 95 Medical Decision Making Additional Comment Rabivert injection #3 of series provided for patient. Patient understands to return in scheduled date for a 4. No adverse reactions reported. Departure Disposition: 01 HOME / SELF CARE / HOMELESS Impression: Primary Impression: Need for rabies vaccination Additional Impression Text Please return as directed for number for 4th injection of rabies series. Thank you for visiting emergency department [facility]. Condition: Stable Discharge Instructions: Medical Screening Exam Referrals: NO PRIMARY CARE PROVIDER (PCP) Education Educated: Patient Educated regarding: diagnosis Signature Scribe Signature: . Attestation: . LIBERTAD WHEAT Apr 15, 2025 18:53
== END 2025-04-15 19:06 | disposition home or self-care (01) ==
LOC: ER 17:42
DX: Z20.3 Contact with and (suspected) exposure to rabies (principal); Z23 Encounter for immunization; E11.9 Type 2 diabetes mellitus without complications; I10 Essential (primary) hypertension; Z88.8 Allergy status to other drugs, medicaments and biological substances; Z79.82 Long term (current) use of aspirin
CPT/HCPCS: 90675; 99282; G0008; 90471; 99281

== ENCOUNTER 2025-04-22 17:31 | Emergency (ER) | payer MEDICARE, BC ==
[~2025-04-22] VITALS: Ht 172.7 cm; Wt 94.1 kg
[2025-04-22 17:44] VITALS: BP 144/65; PULSE 72; RESP 18; O2SAT 95
--- NOTE | 2025-04-22 18:19 | Physician Documentation ---
History of Present Illness ~ Chief Complaint: Bite-animal Stated Complaint: RABIES VACCINE Time Seen by MD: 17:55 Primary Medical Doctor: Dr. Alan HPI This is a 70-year-old male who presents for his last rabies vaccine in the rabies prophylaxis series after receiving multiple rat bites two weeks prior. No other acute symptoms or concerns reported. Tetanus within 5 years?: Yes Medication Reconciliation Allergies: Coded Allergies: hydroxyzine (Verified Allergy, Unknown, 04/15/25) moexipril (Verified Allergy, Unknown, 04/15/25) Uncoded Allergies: DIABETES 1X/W INJECTION (Allergy, Severe, vomiting,swelling, hives, 03/22/22) Scheduled Aspirin (Aspir 81), 1 TAB PO DAILY, (Reported) Atorvastatin Calcium (Atorvastatin Calcium), 1 TAB PO DAILY, (Reported) Docusate Sodium (Docusate Sodium), 100 MG PO BID Lisinopril (Lisinopril), 1 TAB DAILY, (Reported) Metformin HCl (Metformin HCl), 2 TAB PO BID, (Reported) Metoprolol Tartrate (Lopressor tablet), 12.5 MG PO Q12H Pregabalin (Pregabalin), 2 CAP PO BID, (Reported) Pregabalin (Lyrica), 1 CAP PO DAILY AT NOON, (Reported) Tamsulosin Hcl* (Flomax*), 1 TAB PO DAILY, (Reported) Scheduled PRN Acetaminophen (Tylenol), 650 MG PO Q6H PRN for mild pain, fever>100.5 Insulin Glargine,Hum.rec.anlog (Insulin Glargine), 10 UNITS SQ HS PRN for IF GLUCOSE > 140 2H AFTERMEAL, (Reported) Triamcinolone Acetonide 0.1% Crm* (Kenalog 0.1% Crm*), 1 APPLIC TOP BID PRN for itching, (Reported) Past Medical History Past Medical History: *CARDIOVASCULAR*, Hypertension, Diabetes Past Surgical History: noncontributory Alcohol Use: None Drug Use: none Lives with: Spouse Lives In: Home Occupation: retired Review of Systems ROS As stated above in the HPI, otherwise all systems are reviewed and negative. Physical Exam Vital Signs: Temperature: 98.1, Source: Temporal, Heart Rate: 72, Respiratory Rate: 18, BP: 144/65, Pulse Oximetry: 95, Weight: 94.100 Oxygen Flow Rate: 0 Physical Exam VITALS: Reviewed and as above. GENERAL: Alert, nontoxic appearing, no apparent distress. RESPIRATORY: No increased work of breathing, no respiratory distress, speaking in full clear sentences Progress Results/Orders Results/Orders Vital Signs 04/22/25 04/22/25 17:44 18:38 Temp 98.1 98.1 Pulse 72 Resp 18 B/P (MAP) 144/65 Pulse Ox 95 O2 Flow Rate 0 Medical Decision Making Findings Patient presented for last rabies vaccine in prophylaxis series, patient is otherwise well-appearing and reporting no other acute symptoms or concerns, rabies vaccine administered. Differential Dx:Considerations: Include: Allergic reaction, Anaphylaxis, Cellulitis, Laceration, Neurovascular injury, Other (Rabies) Departure Time of Disposition: 18:18 Disposition: 01 HOME / SELF CARE / HOMELESS Impression: Primary Impression: Need for rabies vaccination Additional Impression: Rat bite Qualified Codes: W53.11XD - Bitten by rat, subsequent encounter Condition: Improved Additional Instructions: Please follow up with your primary care provider in the next few days. Please return to the emergency department for any new or worsening concerning symptoms. Referrals: NO PRIMARY CARE PROVIDER (PCP) Education Educated: Patient Educated regarding: diagnosis, treatment, prognosis, need for follow up Signature Scribe Signature: No Scribe Attestation: The note accurately reflects work and decisions made by me.DAGMAR Go 04/23/25 12:51 [place] Apr 22, 2025 18:19 CRYS WELDON MD Apr 24, 2025 08:24
[2025-04-22 18:38] VITALS: TEMP 98.1
== END 2025-04-22 18:39 | disposition home or self-care (01) ==
LOC: ER 17:31
DX: T14.8XXD Other injury of unspecified body region, subsequent encounter (principal); I10 Essential (primary) hypertension; E11.9 Type 2 diabetes mellitus without complications; Z88.8 Allergy status to other drugs, medicaments and biological substances; Z79.899 Other long term (current) drug therapy; Z79.84 Long term (current) use of oral hypoglycemic drugs; Z79.82 Long term (current) use of aspirin; W53.11XD Bitten by rat, subsequent encounter
CPT/HCPCS: 90675; 99282; G0008; 90471; 99281